=== PATIENT | female | born 1990 | race Caucasian/White ===

== ENCOUNTER → 2020-05-26 12:46 | Outpatient (CLI) | payer SELFPAY ==
[2020-05-27 14:20] LABS: Covid-19 Nasal PCR Sendout Lex Not Detected
== END ==
PROVIDERS: PCP Family Medicine; Referring Provider Family Medicine; Visit Provider Family Medicine
DX: Z03.818 Encounter for observation for suspected exposure to other biological agents ruled out (principal)
CPT/HCPCS: U0004

== ENCOUNTER 2021-02-11 14:42 | Emergency (ER) | payer OTHER, SELFPAY ==
[2021-02-11 14:45] VITALS: BP 155/105; PULSE 76; RESP 20; TEMP 36.9; O2SAT 99; BMI 39.6
--- NOTE | 2021-02-11 15:01 | HMH.EDUTC ---
[facility] [place] Clinical Impression: Otitis media Qualifiers: Otitis media type: suppurative Chronicity: acute Laterality: right Recurrence: non-recurrent Spontaneous tympanic membrane rupture: with spontaneous rupture Qualified Code(s): H66.011 - Acute suppurative otitis media with spontaneous rupture of ear drum, right ear Sinusitis Qualifiers: Sinusitis location: maxillary Chronicity: acute Recurrence: non-recurrent Qualified Code(s): J01.00 - Acute maxillary sinusitis, unspecified Disposition: Home, Self-Care Condition on Discharge: Good Instructions: Sinusitis, DI for Sinusitis, Middle Ear Infection Additional Instructions: Start antibiotic as soon as possible and be sure to take as ordered for full length of time even though he should start feeling better in 24-48 hours. Tylenol or Motrin as needed for pain or fever Encourage fluids, water, Gatorade, Powerade, Pedialyte if /toddler/child Warm compresses often helps when placed over ear Return immediately for new or worsening symptoms no noticeable improvement in 48-72 hours and in 10-14 days to ensure the ears are return to baseline. Start antibiotic patient to take as ordered for a full length of time even if you feel better. Sinus infections do not get better overnight. It may take 2-3 days to notice much improvement so be sure to use conservative measures as discussed for symptoms. Flonase 1 spray each nostril daily to help with nasal congestion, sinus and ear pressure/information Increase fluids Humidifier/vaporizer as needed Tylenol and ibuprofen as needed for fever or pain. If symptoms do not improve or get worse return or be seen in the ER Follow-up with primary care this week Prescriptions: Amoxicillin [Amoxicillin 500mg Tab] 500 mg PO BID 10 Days #20 tab Transmission Status: Pending to [facility] Referrals: Casey Graves MD [Primary Care Provider] - Noe Rizo MD [Staff Physician] - Time of Disposition: 15:06 Medical Decision Making - Tuan Inquiry Pt receiving controlled substance: No [facility] [place] H[place] - General Chief complaint: [facility] Stated complaint: possible Rt ear infection Time Seen by Provider: 02/11/21 15:01 Mode of Arrival: Ambulatory Source of Information: Patient Limitations: No Limitations - History of Present Illness Provider Complaint: 30 yr old female presents for rt ear pain x 3 weeks and now having drainage and pain. also having nasal congestion, sinsus pressure and dark drainage. - Related Data Home Medications Medication Instructions Recorded Confirmed lisinopril 40 mg tablet 40 mg PO DAILY 12/31/18 10/14/19 fexofenadine 180 mg tablet 180 mg PO Q24H 10/14/19 10/14/19 fluticasone propionate 50 2 spray INTRANASAL DAILY 10/14/19 10/14/19 mcg/actuation nasal spray,suspension Previous Rx's Medication Instructions Recorded oseltamivir 75 mg capsule 75 mg PO BID 5 Days #10 cap 10/14/19 Amoxicillin [Amoxicillin 500mg Tab] 500 mg PO BID 10 Days #20 tab 02/11/21 Allergies Allergy/AdvReac Type Severity Reaction Status Date / Time No Known Allergies Allergy Verified 10/14/19 13:57 [facility] History - Hepatitis A Screen Attestation statement:: This patient has been screened for Hepatitis A risk factors. I have reviewed the patient's past medical history: Yes Medical History: Reports:: Hypertension Other Surgeries: Yes: No Previous Surgery - Social History Smoking Status: Never smoker Alcohol Intake: never Occupational Status: employed Housing: house Household Members: family Family Hx:: Hypertension ROS Obtained: Yes Systems reviewed as appropriate & no additional complaints - Constitutional Constitutional: Reports system reviewed and no additional complaints, except as docu, Denies fever(s) - Eyes Eyes: Reports system reviewed and no additional complaints, except as docu, Denies blurry vision - ENT Ears, Nose, Mouth, and Throat: Reports system reviewed and no
[2021-02-11 15:13] VITALS: BP 155/105; PULSE 76; RESP 20; TEMP 36.9; O2SAT 99
== END 2021-02-11 15:26 | disposition home or self-care (01) ==
PROVIDERS: Emergency Provider Nurse Practitioner Family; PCP Family Medicine
DX: H66.011 Acute suppurative otitis media with spontaneous rupture of ear drum, right ear (principal); J01.00 Acute maxillary sinusitis, unspecified; I10 Essential (primary) hypertension; Z79.899 Other long term (current) drug therapy
CPT/HCPCS: 99202; G0463

== ENCOUNTER → 2021-03-14 08:39 | Outpatient (POV) | payer OTHER, SELFPAY | PROVIDERS: Visit Provider Otolaryngology | DX: Z00.00 Encounter for general adult medical examination without abnormal findings (principal) ==

== ENCOUNTER → 2021-11-15 10:51 | Outpatient (CLI) | payer OTHER, SELFPAY ==
[2021-11-15 12:26] LABS: Chloride 102 mmol/L (98-107); Sodium 135 mmol/L (136-145)
[2021-11-15 12:27] LABS: Potassium 4.5 mmoL/L (3.5-5.1)
[2021-11-15 12:29] LABS: Alanine Aminotransferase 83 U/L (12-78); Albumin Level 4.9 g/dl (3.5-5.0); Albumin/Globulin Ratio 1.4 (1.1-1.8); Alkaline Phosphatase 88 U/L (38-126); Anion Gap 9.5 mEq/L (5-15); Aspartate Amino Transferase 75 U/L (14-36); Bilirubin,Total 0.4 mg/dl (0.2-1.3); Blood Urea Nitrogen 12 mg/dl (7-17); Carbon Dioxide 28 mmol/L (22.0-30.0); Cholesterol 218 mg/dl (140-200); Estimated Glomerular Filt Rate 117 ml/min (>60); GFR (African American) 141 ML/MIN (>60); Globulin 3.6 g/dL (1.3-3.2); Total Protein,Serum 8.5 g/dl (6.3-8.2); Triglycerides 186 mg/dl (30-150); VLDL Cholesterol 37 mg/dL (0-40)
[2021-11-15 12:30] LABS: Calcium 9.7 mg/dl (8.4-10.2); Chol/HDL Ratio 4.3 (1-3.5); Glucose 86 mg/dl (74-100); HDL Cholesterol 51 mg/dl (40-60)
[2021-11-15 12:41] LABS: Direct LDL Cholesterol 138.11 mg/dL (100-129)
[2021-11-15 12:51] LABS: 25-OH Vitamin D, Total 23.7 ng/mL (30-100)
[2021-11-15 13:01] LABS: Thyroid Stimulating Hormone 1.42 uIU/mL (0.465-4.68)
== END ==
LOC: LAB 10:52
PROVIDERS: PCP Physician Assistant; Visit Provider Physician Assistant
DX: I10 Essential (primary) hypertension (principal); E55.9 Vitamin D deficiency, unspecified; Z13.220 Encounter for screening for lipoid disorders; Z13.29 Encounter for screening for other suspected endocrine disorder; Z79.899 Other long term (current) drug therapy
CPT/HCPCS: 36415; 80053; 80061; 82306; 84443

== ENCOUNTER → 2021-12-05 07:55 | Outpatient (CLI) | payer OTHER, SELFPAY ==
--- NOTE | 2021-12-05 08:00 | US_ITS ---
FINAL REPORT CLINICAL HISTORY: ELEVATED LFT FINDINGS: Sonographic images of the right upper quadrant were obtained. The pancreas is partially obscured. The liver has increased echogenicity consistent with fatty infiltration. There is a trace amount of sludge in the gallbladder without evidence of gallstones.There is no evidence of biliary ductal dilatation.The common duct measures 3 mm. Limited images of the right kidney are unremarkable. IMPRESSION: Fatty infiltrated liver. Trace amount of sludge in the gallbladder without evidence of gallstones. Reviewed, Interpreted and Dictated by Julio Sibley III, MD Transcribed by Rebeca Pierce Authenticated by Julio Sibley III, MD on 12/05/2021 11:32:35 AM [facility]
== END ==
PROVIDERS: PCP Physician Assistant; Visit Provider Physician Assistant
DX: R94.5 Abnormal results of liver function studies (principal)
CPT/HCPCS: 76705

== ENCOUNTER 2022-01-15 19:36 | Emergency (ER) | payer OTHER, SELFPAY ==
[2022-01-15 20:49] VITALS: BP 143/77; PULSE 102; RESP 17; TEMP 38.2; O2SAT 98; BMI 38.7
--- NOTE | 2022-01-15 20:58 | HMH.EDUTC ---
[place] Disposition Clinical Impression: Strep throat Otitis media Qualifiers: Otitis media type: suppurative Chronicity: acute Laterality: bilateral Recurrence: non-recurrent Spontaneous tympanic membrane rupture: without spontaneous rupture Qualified Code(s): H66.003 - Acute suppurative otitis media without spontaneous rupture of ear drum, bilateral Disposition: Home, Self-Care Condition on Discharge: Good Instructions: Strep Throat, DI for Strep Throat Additional Instructions: Drink plenty of fluids. Take tylenol or ibuprofen for pain or fever. Take the medications as directed. Follow up with your regular doctor. GO TO THE ER FOR ANY WORSENING SYMPTOMS Throw your tooth brush away and get a new one. Don't start the oral steroids until tomorrow, since you had the shot here today. The cough medication (promethazine dm) will make you drowsy, so don't drive or operate heavy machinery after taking it. Prescriptions: Promethazine/Dextromethorphan [Promethazine-Dm Syrup] 5 ml PO Q6HP PRN #240 ml PRN Reason: Cough Transmission Status: Pending to [facility] Ondansetron [Zofran 4mg ODT] 4 mg PO Q8HP PRN #20 tab PRN Reason: Nausea Transmission Status: Pending to [facility] Amoxicillin/Potassium Clav [Amox-Clav 875-125 mg Tablet] 1 tab PO BID #20 tab Transmission Status: Pending to [facility] methylPREDNISolone [Medrol] 4 mg PO DIRECTED 6 Days #21 packet Transmission Status: Pending to [facility] Referrals: Jane Kendall PA [Primary Care Provider] - Forms: Work/School Release Time of Disposition: 21:20 Medical Decision Making - Medical Records Medical records reviewed: No: I reviewed the patient's medical records. - Tuan Inquiry Pt receiving controlled substance: No Vital Signs: 01/15/22 20:49 01/15/22 21:12 Temperature 100.8 F H 100.8 F H Temperature Source Oral Oral Pulse Rate 89 Pulse Rate [Left Radial] 102 H Respiratory Rate 17 17 Blood Pressure 140/70 Blood Pressure [Right Arm] 143/77 H Blood Pressure Mean [Right Arm] 99 02 Sat by Pulse Oximetry 98 Oxygen Delivery Method Room Air Room Air - Lab Data Lab results reviewed: Yes: I reviewed the patient's lab results. Orders (Tests/Meds): ED MEDICATIONS Discontinued Medications Generic Name Dose Route Start Last Admin Trade Name Sathya PRTenzin Reason Stop Dose Admin Ceftriaxone Sodium 1 gm 01/15/22 20:56 01/15/22 21:03 Ceftriaxone 1gm Vial IM 01/15/22 20:57 1 gm ONCE ONE Administration Lidocaine HCl 0 ml 01/15/22 20:56 01/15/22 21:03 Lidocaine 1% 5ml Pf Vial IM 01/15/22 20:57 1 ml ONCE ONE Administration Methylprednisolone Sodium Succinate 125 mg 01/15/22 20:56 01/15/22 21:02 Methylprednisolone Sod Succ 125mg Vial IM 01/15/22 20:57 125 mg ONCE ONE Administration [place] HPI - General Stated complaint: sore throat,GRIFFITHS diarrhes,runny nose Time Seen by Provider: 01/15/22 20:59 Mode of Arrival: Ambulatory Source of Information: Patient Limitations: No Limitations Description of Symptoms (Recalled from Triage Doc. by RN): [facility]/o sore throat, congestion and chills that started today HEENT Symptoms (Recalled from RN notes): Yes Resp Symptoms (Recalled from RN notes): No Skin Symptoms (Recalled from RN notes): No MS Symptoms (Recalled from RN notes): No Functional Status (Recalled from RN notes): na - History of Present Illness Provider Complaint: She states that she has had a sore throat and right ear pain since earlier today. Her symptoms came on kind of abruptly. She has had chilling and low grade fever also. - Related Data Home Medications Medication Instructions Recorded Confirmed lisinopril 40 mg tablet 40 mg PO DAILY 12/31/18 02/11/21 fluticasone propionate 50 2 spray INTRANASAL DAILY 10/14/19 02/11/21 mcg/actuation nasal spray,suspension Previous Rx's Medication Instructions Recorded Brett
[2022-01-15 21:12] VITALS: BP 140/70; PULSE 89; RESP 17; TEMP 38.2; O2SAT 98
== END 2022-01-15 21:21 | disposition home or self-care (01) ==
PROVIDERS: Emergency Provider Nurse Practitioner Family; PCP Physician Assistant
DX: J02.0 Streptococcal pharyngitis (principal); H66.003 Acute suppurative otitis media without spontaneous rupture of ear drum, bilateral; I10 Essential (primary) hypertension
CPT/HCPCS: 96372; 99213; G0463; J0696

== ENCOUNTER 2022-05-24 13:08 | Emergency (ER) | payer OTHER, SELFPAY ==
[2022-05-24 14:32] VITALS: BP 153/92; PULSE 89; RESP 18; TEMP 36.8; O2SAT 100; BMI 38.2
--- NOTE | 2022-05-24 14:42 | HMH.EDUTC ---
[facility] [place] Disposition Clinical Impression: Viral syndrome Disposition: Home, Self-Care Condition on Discharge: Good Instructions: DI for Viral Syndrome, DI for COVID-19 (Suspected or Confirmed ), Preventing the Spread of Coronavirus Discharge Instructions Additional Instructions: *Monitor Temp, Over the counter Motrin or Tylenol as directed/as needed Tylenol every 4 hours and Motrin every 6 hours (as long as your family doctor has told you that you can take it) for fever or pain. and straight to ER if unable to lower temp less than 101.0 after medication given *Warm salt water gargles may help to soothe the throat *Throat Lozenges *Warm fluids like tea with honey may help to soothe the throat *Sleep elevated *Humidifier/Vaporizer Follow up IMMEDIATELY for new or worsening symptoms or no Noticeable improvement over the next 48-72 hours. 911 for difficulty breathing or swallowing You were tested for today for COVID19 your test result should be back in the next 24-48 hours, you may check your results on the [facility] My Health portal Make sure to take your Vitamins Vit. C Vit D and Zinc if you can take them Referrals: Jane Kendall PA [Primary Care Provider] - As needed Forms: Work/School Release Time of Disposition: 14:46 Medical Decision Making - Tuan Inquiry Pt receiving controlled substance: No Tuan was queried for this patient: No Vital Signs: 05/24/22 14:32 Temperature 98.2 F Temperature Source Oral Pulse Rate [Radial] 89 Respiratory Rate 18 Blood Pressure [Right Arm] 153/92 H Blood Pressure Mean [Right Arm] 112 Blood Pressure Source [Right Arm] Automatic Cuff Blood Pressure Position [Right Arm] Sitting 02 Sat by Pulse Oximetry 100 Oxygen Delivery Method Room Air Orders (Tests/Meds): ORDERS Category Date Time Status Covid-19 Nasal PCR ([facility]) Routine Lab 05/24/22 14:[address] [facility] [place] HPI - General Stated complaint: covid test Time Seen by Provider: 05/24/22 14:42 Mode of Arrival: Ambulatory Source of Information: Patient Limitations: No Limitations Description of Symptoms (Recalled from Triage Doc. by RN): BODY ACHES, CHILLS, COUGH HEENT Symptoms (Recalled from RN notes): Yes Resp Symptoms (Recalled from RN notes): Yes Skin Symptoms (Recalled from RN notes): No MS Symptoms (Recalled from RN notes): No Functional Status (Recalled from RN notes): N/A - History of Present Illness Provider Complaint: Patient states that she was around several people at work that has since tested positive for COVID States that she has now started not feeling well with body aches, cough, chills and nasal congestion so she waned to get tested for COVID - Related Data Home Medications Medication Instructions Recorded Confirmed lisinopril 40 mg tablet 40 mg PO DAILY 12/31/18 02/11/21 fluticasone propionate 50 2 spray INTRANASAL DAILY 10/14/19 02/11/21 mcg/actuation nasal spray,suspension Previous Rx's Medication Instructions Recorded Amoxicillin [Amoxicillin 500mg Tab] 500 mg PO BID 10 Days #20 tab 02/11/21 Amoxicillin/Potassium Clav 1 tab PO BID #20 tab 01/15/22 [Amox-Clav 875-125 mg Tablet] Ondansetron [Zofran 4mg ODT] 4 mg PO Q8HP PRN #20 tab 01/15/22 Promethazine/Dextromethorphan 5 ml PO Q6HP PRN #240 ml 01/15/22 [Promethazine-Dm Syrup] methylPREDNISolone [Medrol] 4 mg PO DIRECTED 6 Days #21 01/15/22 packet Allergies Allergy/AdvReac Type Severity Reaction Status Date / Time No Known Allergies Allergy Verified 10/14/19 13:57 - Worker's Comp Is this a Worker's Comp case?: No [facility] History - Hepatitis A Screen Attestation statement:: This patient has been screened for Hepatitis A risk factors. I have reviewed the patient's past medical history: Yes Medical History: Reports:: Hypertension Laterality Cases: Bilateral: Myringotomy (Ear Tubes) Other Surgeries: Yes: No Previous Surgery - Social History Smoking Status: Never smoker Alcohol Intake: never Occ
[2022-05-24 14:50] VITALS: BP 153/92; PULSE 88; RESP 18; TEMP 36.8; O2SAT 100
== END 2022-05-24 14:50 | disposition home or self-care (01) ==
PROVIDERS: Emergency Provider Nurse Practitioner; PCP Physician Assistant
DX: U07.1 COVID-19 (principal)
CPT/HCPCS: 99212; C9803; G0463; U0003; U0005

== ENCOUNTER 2022-08-16 18:06 | Emergency (ER) | payer OTHER, SELFPAY ==
[2022-08-16 18:59] VITALS: BP 140/93; PULSE 78; RESP 19; TEMP 37.1; O2SAT 98; BMI 38.7
[2022-08-16 19:12] LABS: UTC Strep Screen (Rapid) Negative (Negative)
--- NOTE | 2022-08-16 19:17 | EXP.UTC ---
Discharge Plan Disposition Patient Disposition: Home, Self-Care Condition: Good Prescriptions Prescriptions: New benzonatate 100 mg capsule 100 mg PO TID PRN (Reason: cough) Qty: 30 0RF methylprednisolone [Medrol (Michael)] 4 mg tablets,dose pack See Rx Instructions .Route .COMPLEX 6 Days Qty: 21 0RF Rx Instructions: taper pack; amoxicillin-pot clavulanate 875-125 mg Tablet 1 tab PO Q12H Qty: 20 0RF No Action lisinopril 40 mg tablet 40 mg PO DAILY fluticasone propionate [Flonase Allergy Relief] 50 mcg/actuation spray,suspension 2 spray INTRANASAL DAILY Rx Instructions: administer into each nostril amoxicillin 500 MG tablet 500 mg PO BID 10 Days Qty: 20 0RF promethazine-DM 120 ML syrup 5 ml PO Q6HP PRN (Reason: Cough) Qty: 240 0RF methylprednisolone 4 MG tablets,dose pack 4 mg PO DIRECTED 6 Days Qty: 21 0RF ondansetron 4 MG tablet,disintegrating 4 mg PO Q8HP PRN (Reason: Nausea) Qty: 20 0RF amoxicillin-pot clavulanate 1 EACH tablet 1 tab PO BID Qty: 20 0RF loratadine [Claritin] 10 mg Tablet 10 mg PO DAILY Referrals Follow up/Referrals: Jane Kendall PA [Primary Care Provider] - See instructions Activity Restrictions/Add. Instructions Additional Instructions/Restrictions: *Monitor Temp, Over the counter Motrin or Tylenol as directed/as needed Tylenol every 4 hours and Motrin every 6 hours (as long as your family doctor has told you that you can take it) for fever or pain. and straight to ER if unable to lower temp less than 101.0 after medication given *Warm salt water gargles may help to soothe the throat *Throat Lozenges? *Warm fluids like tea with honey may help to soothe the throat? *Sleep elevated *Humidifier/Vaporizer Your throat swab was sent for culture. Those results are typically sent to your primary care. Be sure to follow up in 2-3 days with your family doctor/primary care physician if no improvement so they can review those result and treat if necessary. If you don?t have a primary care doctor, I recommend you get one but in the mean time, you will have to return to a walk in clinic Follow up IMMEDIATELY for new or worsening symptoms or no Noticeable improvement over the next 48-72 hours. 911 for difficulty breathing or swallowing You were tested for today for COVID19 your test result should be back in the next 24-48 hours, you may check your results on the [facility] My Health Portal Clinical Impressions Clinical Impression: Otitis media Stand Alone Forms Stand Alone Forms: Work/School Release Instructions Patient Instructions: Middle Ear Infection, Sore Throat Discharge ED Provider: Rima Grover [facility] [place] HPI General Stated complaint: sore thru,L ear drainage Mode of Arrival: Ambulatory Source of Information: Patient Limitations: No Limitations Time Seen by Provider: 08/16/22 19:17 Description of Symptoms (Recalled from Triage Doc. by RN): pt comes in with c/o cough, congestion, left ear pain, drainage, ongoing for 1 week HEENT Symptoms (Recalled from RN notes): Yes Resp Symptoms (Recalled from RN notes): Yes Skin Symptoms (Recalled from RN notes): No MS Symptoms (Recalled from RN notes): No Functional Status (Recalled from RN notes): n/a History of Present Illness Provider Complaint: Patient states that she has been having cough, bilateral ear pain worse in left, sinus congestion and drainage for the last week States that today her ears was hurting worse and she felt like it was trying to move into her chest area Related Data Home Medications Medication Instructions Recorded Confirmed lisinopril 40 mg tablet 40 mg PO DAILY Hypertension 12/31/18 08/16/22 fluticasone propionate 50 2 spray intranasal DAILY Allergy 10/14/19 08/16/22 mcg/actuation nasal symptoms spray,suspension (Flonase Allergy Relief) loratadine 10 mg tablet (Claritin) 10 mg PO DAILY Allergy symptoms 08/16/22
[2022-08-16 19:23] LABS: Adenovirus,PCR Not Detected (NotDetected); Bordetella Pertussis Not Detected (NotDetected); Chlamydophila Pneumoniae, PCR Not Detected (NotDetected); Coronavirus 19, PCR Not Detected (NotDetected); Coronavirus 229E Not Detected (NotDetected); Coronavirus NL63 Not Detected (NotDetected); Coronavirus OC43 Not Detected (NotDetected); Coronovirus HKU1,PCR Not Detected (NotDetected); Human Metapneumovirus Not Detected (NotDetected); Influenza A, PCR Not Detected (NotDetected); Influenza AH1, 2009 Not Detected (NotDetected); Influenza AH1, PCR Not Detected (NotDetected); Influenza AH3,PCR Not Detected (NotDetected); Influenza B, PCR Not Detected (NotDetected); Mycoplasma Pneumoniae, PCR Not Detected (NotDetected); Parainfluenza 1, PCR Not Detected (NotDetected); Parainfluenza 2, PCR Not Detected (NotDetected); Parainfluenza 3, PCR Not Detected (NotDetected); Parainfluenza 4, PCR Not Detected (NotDetected); Respiratory Syncytial Virus Not Detected (NotDetected)
[2022-08-16 19:31] VITALS: BP 140/93; PULSE 78; RESP 19; TEMP 37.1
[2022-08-16 23:36] LABS: Rhinovirus/Enterovirus Detected (NotDetected)
== END 2022-08-16 19:55 | disposition home or self-care (01) ==
PROVIDERS: Emergency Provider Nurse Practitioner; PCP Physician Assistant
DX: H66.90 Otitis media, unspecified, unspecified ear (principal)
CPT/HCPCS: 87581; 87632; 87798; 87880; 99212; C9803; G0463; U0003; U0005

== ENCOUNTER → 2022-10-23 09:01 | Outpatient (CLI) | payer OTHER, SELFPAY ==
--- NOTE | 2022-10-23 09:07 | US_ITS ---
FINAL REPORT CLINICAL HISTORY: ELEVATED LFT FINDINGS: Sonographic images of the right upper quadrant were obtained. The pancreas is partially obscured. The liver has increased echogenicity consistent with fatty infiltration. The gallbladder appears normal without evidence of gallstones.There is no evidence of biliary ductal dilatation.The common duct measures 2 mm. Limited images of the right kidney are unremarkable. IMPRESSION: Fatty liver. Reviewed, Interpreted and Dictated by Julio Sibley III, MD Transcribed by Rebeca Pierce Authenticated and . [facility]
== END ==
LOC: RAD 09:01
PROVIDERS: PCP Physician Assistant; Visit Provider Physician Assistant
DX: R94.5 Abnormal results of liver function studies (principal)
CPT/HCPCS: 76705

== ENCOUNTER 2023-04-14 09:59 | Emergency (ER) | payer OTHER, SELFPAY ==
[2023-04-14 10:00] VITALS: BP 143/89; PULSE 104; RESP 18; TEMP 37.3; O2SAT 97; BMI 40.3
[2023-04-14 10:18] LABS: UTC Strep Screen (Rapid) Positive (Negative)
--- NOTE | 2023-04-14 10:30 | EXP.UTC ---
Discharge Plan Disposition Patient Disposition: Home, Self-Care Condition: Good Prescriptions Prescriptions: New amoxicillin [amoxicillin] 875 mg tablet 875 mg PO Q12H Qty: 20 0RF yzwfdwidxzyyvjx-zakenepce-UJ [Bromfed DM] 2-30-10 mg/5 mL Syrup 5 ml PO Q6H PRN (Reason: Cough) Qty: 240 0RF methylprednisolone 4 mg Tablets,Dose Pack 4 mg PO DIRECTED Qty: 21 0RF No Action lisinopril 40 mg tablet 40 mg PO DAILY fluticasone propionate [Flonase Allergy Relief] 50 mcg/actuation spray,suspension 2 spray INTRANASAL DAILY Rx Instructions: administer into each nostril amoxicillin 500 MG tablet 500 mg PO BID 10 Days Qty: 20 0RF promethazine-DM 120 ML syrup 5 ml PO Q6HP PRN (Reason: Cough) Qty: 240 0RF methylprednisolone 4 MG tablets,dose pack 4 mg PO DIRECTED 6 Days Qty: 21 0RF ondansetron 4 MG tablet,disintegrating 4 mg PO Q8HP PRN (Reason: Nausea) Qty: 20 0RF amoxicillin-pot clavulanate 1 EACH tablet 1 tab PO BID Qty: 20 0RF loratadine [Claritin] 10 mg Tablet 10 mg PO DAILY benzonatate 100 mg capsule 100 mg PO TID PRN (Reason: cough) Qty: 30 0RF methylprednisolone [Medrol (Michael)] 4 mg tablets,dose pack See Rx Instructions .Route .COMPLEX 6 Days Qty: 21 0RF Rx Instructions: taper pack; amoxicillin-pot clavulanate 875-125 mg Tablet 1 tab PO Q12H Qty: 20 0RF Referrals Follow up/Referrals: Jane Kendall PA [Primary Care Provider] - See instructions Activity Restrictions/Add. Instructions Additional Instructions/Restrictions: Drink plenty of fluids. Take tylenol or ibuprofen for pain or fever. Take the medications as directed. Follow up with your regular doctor. GO TO THE ER FOR ANY WORSENING SYMPTOMS Throw your tooth brush away and get a new one. Clinical Impressions Clinical Impression: Otitis media, Strep throat Stand Alone Forms Stand Alone Forms: Work/School Release Instructions Patient Instructions: DI for Strep Throat Discharge ED Provider: Dony Osei [facility] General Stated complaint: sore throat,drainage Mode of Arrival: Ambulatory Source of Information: Patient Limitations: No Limitations Time Seen by Provider: 04/14/23 10:30 Description of Symptoms (Recalled from Triage Doc. by RN): Patient complaint of sore throat, headache and drainage since yesterday. HEENT Symptoms (Recalled from RN notes): Yes Resp Symptoms (Recalled from RN notes): No Skin Symptoms (Recalled from RN notes): No MS Symptoms (Recalled from RN notes): No Functional Status (Recalled from RN notes): wnl History of Present Illness Provider Complaint: She c/o right ear and sore throat for the past 3 days. Related Data Home Medications Medication Instructions Recorded Confirmed lisinopril 40 mg tablet 40 mg PO DAILY Hypertension 12/31/18 08/16/22 fluticasone propionate 50 2 spray intranasal DAILY Allergy 10/14/19 08/16/22 mcg/actuation nasal symptoms spray,suspension (Flonase Allergy Relief) loratadine 10 mg tablet (Claritin) 10 mg PO DAILY Allergy symptoms 08/16/22 08/16/22 Previous Rx's Medication Instructions Recorded amoxicillin 500 mg tablet 500 mg PO BID 10 days #20 tabs 02/11/21 amoxicillin 875 mg-potassium 1 tab PO BID #20 tabs 01/15/22 clavulanate 125 mg tablet methylprednisolone 4 mg tablets in 4 mg PO DIRECTED 6 days #21 01/15/22 a dose pack packets ondansetron 4 mg disintegrating 4 mg PO Q8HP PRN Nausea #20 tabs 01/15/22 tablet promethazine-DM 6.25 mg-15 mg/5 mL 5 ml PO Q6HP PRN Cough #240 mL 01/15/22 oral syrup amoxicillin 875 mg-potassium 1 tab PO Q12H #20 tabs 08/16/22 clavulanate 125 mg tablet benzonatate 100 mg capsule 100 mg PO TID PRN cough #30 caps 08/16/22 methylprednisolone 4 mg tablets in See Rx Instructions .Route 08/16/22 a dose pack (Medrol (Michael)) .COMPLEX 6 days #21 tabs amoxicillin 875 mg tablet 875 mg PO Q12H #20 tabs 04/14/23 brompheniramine-pseudoephed
[2023-04-14 10:57] VITALS: BP 143/89; PULSE 104; RESP 18; TEMP 37.3; O2SAT 97
== END 2023-04-14 10:58 | disposition home or self-care (01) ==
PROVIDERS: Emergency Provider Nurse Practitioner Family; PCP Physician Assistant
DX: J02.0 Streptococcal pharyngitis (principal); H66.93 Otitis media, unspecified, bilateral
CPT/HCPCS: 87880

== ENCOUNTER 2023-12-16 10:00 | Emergency (ER) | payer BC, SELFPAY ==
[2023-12-16 10:15] VITALS: BP 131/91; PULSE 91; RESP 19; TEMP 36.9; O2SAT 98; BMI 40.2
--- NOTE | 2023-12-16 10:24 | ED_ITS ---
Discharge Plan Disposition Patient Disposition: Home, Self-Care Condition: Good Prescriptions Prescriptions: New prednisone 10 mg tablet 10 mg PO BID 3 Days Qty: 6 0RF amoxicillin [amoxicillin] 875 mg tablet 875 mg PO Q12H Qty: 20 0RF [id number] [Bromfed DM] 2-30-10 mg/5 mL Syrup 5 ml PO Q6H PRN (Reason: Cough) Qty: 240 0RF No Action lisinopril 40 mg tablet 40 mg PO DAILY fluticasone propionate [Flonase Allergy Relief] 50 mcg/actuation spray,suspension 2 spray INTRANASAL DAILY Rx Instructions: administer into each nostril loratadine [Claritin] 10 mg Tablet 10 mg PO DAILY montelukast [Singulair] 10 mg Tablet 10 mg PO DAILY Referrals Follow up/Referrals: Jane Kendall PA [Primary Care Provider] - See instructions Activity Restrictions/Add. Instructions Additional Instructions/Restrictions: Drink plenty of fluids. Take tylenol or ibuprofen for pain or fever. Follow up with your regular doctor. GO TO THE ER FOR ANY WORSENING SYMPTOMS Clinical Impressions Clinical Impression: Strep throat Stand Alone Forms Stand Alone Forms: Work/School Release Instructions Patient Instructions: Strep Throat, DI for Strep Throat Discharge ED Provider: Dony Osei [facility] General Stated complaint: fever, GRIFFITHS, ear pain Time Seen by Provider: 12/16/23 10:24 History of Present Illness Provider Complaint: She states that for the past 2 days she has had sore throat, chills, and malaise. Related Data Home Medications Medication Instructions Recorded Confirmed lisinopril 40 mg tablet 40 mg PO DAILY Hypertension 12/31/18 12/16/23 fluticasone propionate 50 2 spray intranasal DAILY Allergy 10/14/19 12/16/23 mcg/actuation nasal symptoms spray,suspension (Flonase Allergy Relief) loratadine 10 mg tablet (Claritin) 10 mg PO DAILY Allergy symptoms 08/16/22 12/16/23 montelukast 10 mg tablet 10 mg PO DAILY 12/16/23 12/16/23 (Singulair) Previous Rx's Medication Instructions Recorded amoxicillin 875 mg tablet 875 mg PO Q12H #20 tabs 12/16/23 [id number]-TD 5 ml PO Q6H PRN Cough #240 mL 12/16/23 2 mg-30 mg-10 mg/5 mL oral syrup (Bromfed DM) prednisone 10 mg tablet 10 mg PO BID 3 days #6 tabs 12/16/23 Allergies Allergy/AdvReac Type Severity Reaction Status Date / Time No Known Allergies Allergy Verified 11/04/23 15:53 [facility] Disclaimer: The information contained in this section may have been updated after the patient was seen, as this information can be updated by other users. Medical History (Updated 12/16/23 @ 10:45 by Dony Osei APRN) Acute right otitis media Chronic otitis media of right ear Recurrent acute otitis media of both ears Retraction pocket of tympanic membrane Social History Smoking Status: Never smoker alcohol intake: never current occupational status: other Travel in the last 8 weeks: None household members: family housing: house ROS Obtained: Yes All systems reviewed & no additional complaints except as documented Constitutional Constitutional: Reports chills and Reports fever(s) Eyes Eyes: Denies eye discharge ENT Ears, Nose, Mouth, and Throat: Reports as per HPI Cardiovascular Cardiovascular: Denies chest pain Respiratory Respiratory: Denies chest congestion and Reports cough Gastrointestinal Gastrointestingal: Reports nausea; Denies abdominal pain, constipation, cramping, diarrhea or vomiting Musculoskeletal Musculoskeletal: Denies arthralgias Integumentary/Breasts Skin/Breast: Denies rash Neurologic Neurologic: Denies paresthesias Physical Exam General General appearance: alert and in no apparent distress Head Head exam: atraumatic, normocephalic and normal inspection Eye Eye exam: Present normal appearance, PERRL and EOMI ENT ENT exam: Present mucous membranes moist and normal external ear exam Expanded ENT Exam TM/Canal exam: Bilateral TM: erythema and bulging Nose exam: Absent sinus tenderness Mouth exam: Present normal external inspection; Absent drooling Teeth exam: Present normal inspection Throat exam: Present tonsillar erythema, tonsillomegaly and tonsillar exudate Neck Neck exam: Present normal inspection, full ROM and trachea midline; Absent tenderness, meningismus or lymphadenopathy Chest Chest inspection: Present normal inspection and symmetric chest wall rise; Absent tenderness Respiratory Respiratory exam: Present normal lung sounds bilaterally; Absent respiratory distress, wheezes, stridor or accessory muscle use Cardiovascular Cardiovascular exam: Present regular rate and normal rhythm; Absent systolic murmur or diastolic murmur Abdominal Exam Abdominal exam: Present soft and normal bowel sounds; Absent distention, tenderness, guarding, rebound or rigidity Extremities Exam Extremities exam: Present normal inspection and normal capillary refill; Absent calf tenderness Back Exam Back exam: Present normal inspection and full ROM; Absent tenderness, CVA tenderness (R) or CVA tenderness (L) Neurological Exam Neurological exam: Present alert, oriented X3 and CN II-XII intact Psychiatric Psychiatric exam: Present normal affect and normal mood Skin Skin exam: Present warm, dry, intact and normal color Medical Decision Making Medical Records Medical records reviewed: No I reviewed the patient's medical records. Tuan Inquiry Pt receiving controlled substance: No Lab Data Lab results reviewed: Yes I reviewed the patient's lab results.
[2023-12-16 10:38] VITALS: BP 131/91; PULSE 91; RESP 19; TEMP 36.9; O2SAT 98
[2023-12-16 10:41] LABS: UTC Strep Screen (Rapid) Positive (Negative)
[2023-12-16 10:42] LABS: UTC Influenza A Antigen Negative (Negative); UTC Influenza B Antigen Negative (Negative)
== END 2023-12-16 10:53 | disposition home or self-care (01) ==
PROVIDERS: Emergency Provider Nurse Practitioner Family; PCP Physician Assistant
DX: J02.0 Streptococcal pharyngitis (principal); R07.0 Pain in throat; R50.9 Fever, unspecified; R05.9 Cough, unspecified; R11.0 Nausea
CPT/HCPCS: 87804; 87880; 99212; 99214; G0463

== ENCOUNTER 2024-01-13 15:33 | Outpatient (POV) | payer BC, SELFPAY | END 2024-01-13 23:59 | disposition home or self-care (01) | LOC: SC 15:33 | PROVIDERS: Visit Provider Specialist/Technologist | DX: Z00.00 Encounter for general adult medical examination without abnormal findings (principal) ==

== ENCOUNTER 2024-02-07 13:29 | Outpatient (CLI) | payer BC, SELFPAY ==
--- NOTE | 2024-02-07 13:53 | MR_ITS ---
FINAL REPORT CLINICAL HISTORY: HEARING LOSS IN RIGHT EAR COMPARISON: None FINDINGS: Multiplanar MR imaging of the brain was performed without and with contrast, with attention to the posterior fossa, cerebellopontine angles and internal auditory canals. There is no evidence of intracranial hemorrhage or mass. The ventricular size is within normal limits. There is no evidence of shift of the midline structures. No area of abnormal restricted diffusion is identified. Normal major vessel vascular flow voids are seen. No abnormal contrast enhancement is identified within the brain. No mass or abnormal contrast enhancement is seen within the cerebellopontine angles or internal auditory canals. There is opacification of the right mastoid air cells, the mastoid antrum, and the middle ear cavity on the right side. There is opacification of several left mastoid air cells as well, and the ethmoid air cells. IMPRESSION: No acute intracranial abnormality identified. Opacification of the right mastoid air cells, the mastoid antrum, and middle ear cavity all on the right side, that may represent an otitis media or other etiology of the right sided hearing loss. There is also opacification of several left mastoid air cells as well as multiple ethmoid air cells. Reviewed, Interpreted and Dictated by Julio Sibley III, MD Transcribed by Ema Lin Authenticated and [facility]
[2024-02-07 14:28] LABS: Blood Urea Nitrogen 9 mg/dl (7-17); Estimated Glomerular Filt Rate 115 ml/min (>60); GFR (African American) 139 ML/MIN (>60)
[2024-02-07] MEDS: SODIUM CHLORIDE 0.9% 10ML SYR (RAD ONLY) 10 ML IV (15:14)
[2024-02-07] MEDS: GADOTERIDOL INJ 17ML SYRINGE 22 ML IV (15:14)
== END 2024-02-07 23:59 | disposition home or self-care (01) ==
PROVIDERS: PCP Physician Assistant; Visit Provider Nurse Practitioner
DX: H93.11 Tinnitus, right ear (principal); H90.11 Conductive hearing loss, unilateral, right ear, with unrestricted hearing on the contralateral side
CPT/HCPCS: 36415; 70553; 82565; 84520; A9576

== ENCOUNTER 2024-03-09 08:32 | Day surgery (SDC) | payer BC, SELFPAY ==
[2024-03-05 10:27] VITALS: BMI 40.3
[2024-03-09] VITALS (8 sets, daily range): BP systolic 126–150; BP diastolic 73–97; PULSE 85–112; RESP 12–18; TEMP 36.3–36.6; O2SAT 91–97
[2024-03-09 09:18] LABS: Urine Pregnancy, HCG Qual. Negative (Negative)
[2024-03-09] MEDS: LACTATED RINGERS 1000ML 1,000 ML 25 ML IV (09:28)
--- NOTE | 2024-03-09 09:32 | P.PNANES_ITS ---
[facility] Disclaimer: The information contained in this section may have been updated after the patient was seen, as this information can be updated by other users. Medical History Hypertension Chronic serous otitis media Tinnitus Hearing loss Retraction pocket of tympanic membrane Chronic otitis media of right ear Acute right otitis media Recurrent acute otitis media of both ears Family History Other Family history of myocardial infarction Social History (Updated 03/09/24 @ 09:10 by Loli Paris RN) Smoking Status: Never smoker alcohol intake: never substance use type: denies use current occupational status: employed Travel in the last 8 weeks: None household members: family housing: house [facility] Anesthesia Checklist Patient Identification Patient Identification: Arm Band Structural Data Admitted From: Home Planned Operative Procedure/s: Right Myringotomy Tube Placement Consent for Planned Operative Procedure(s) Verified: Yes Verified Documents: Surgical Consent and History and Physical NPO Status Verified Time NPO: 00:00 Additional verifications Anesthesia Reactions: No Hx Blood Transfusions: No Blood Transfusion Reaction: No Airway Assessment Mallampati Score:: Class II C-Spine Mobility Assessed: Yes TMJ Mobility Assessed: Yes Dentition: Good Dentition Neurological Assessment Level of Consciousness: Awake and Alert Anesthesia Plan Anesthesia Risk discussed: Yes Anesthesia Plan: Verified ASA Class: III Anesthesia Type: General
--- NOTE | 2024-03-09 10:57 | EXP.OP.NOTE ---
Date of procedure: 03/09/24 Pre-op Diagnosis:: Chronic serous otitis media?right Post-op Diagnosis:: Same Procedure performed:: Right myringotomy with tube placement?small T-tube Surgeon:: Augustus Shah III, MD Engineering And Scientific Programmer(s):: None PACKAGER:: Aydee Benito Anesthesia: GETKath Estimated blood loss (mL): 0 Operative findings:: Retracted right tympanic membrane with evidence of granulation tissue posteriorly with early retraction pocket. Operative note:: Patient was brought to the operating room placed under general endotracheal anesthesia. Left external auditory canal and tympanic membrane were inspected under microscopic guidance. They appeared normal without any signs of effusions. Right side was then inspected, she had granulation tissue posteriorly that was suctioned clear. Appeared to have an early retracted area that was inflamed. I elected to make the incision in the tympanic membrane anteriorly. Once this was done thick mucoid effusion was aspirated from the middle ear space. A small T-tube was placed through the incision and antibiotic drops followed. Patient was then awakened in the operating room and taken to recovery in good condition. Condition: stable Disposition: PACU Complications:: None
--- NOTE | 2024-03-09 10:58 | EXP.ANES.I ---
[facility] Anesthesia Record Part I Anesthesia Record I Intake, IV Amount: 400 Hydration: Adequate Estimated blood loss (mL): 0 Urine output (mL): 0 Blood Pressure: 141/96 SaO2: 93 Pulse Rate: 112 Airway Patency: Patent Respiratory Rate: 12 Temperature: 97.3 F Patient is:: Awake Stable to PACU at:: 10:55
--- NOTE | 2024-03-10 07:13 | P.PNANES_ITS ---
[facility] Anesthesia Record Part II Anesthesia Record Part II Discharge Time: 11:25 Destination: Surgical Day Care (OP Surgery) PACU nurse assessment reviewed?: Yes Patient Condition:: Good Anesthesia Complications:: None Swallowing reflex intact?: Yes Airway Patency: Patent Cyanosis?: No Blood Pressure: 148/81 SaO2: 94 Respiratory Rate: 18 Pulse Rate: 91 Temperature: 97.5 F Mental Status: Alert & Oriented Pain level:: 0 Nausea and/or vomitting:: None Intake, IV Amount: 0 Hydration: Adequate
[2024-03-10 07:14] VITALS: BP 148/81; PULSE 91; RESP 18; TEMP 36.4; O2SAT 94
== END 2024-03-09 11:56 | disposition home or self-care (01) ==
PROVIDERS: PCP Physician Assistant; Visit Provider Otolaryngology
PROC: (CPT 69436; principal; 2024-03-09 10:00)
DX: H65.21 Chronic serous otitis media, right ear (principal)
CPT/HCPCS: 69436; 81025; J2405

== ENCOUNTER 2024-05-03 13:46 | Emergency (ER) | payer BC, SELFPAY ==
[2024-05-03 14:00] VITALS: BP 144/77; PULSE 110; RESP 20; TEMP 36.9; O2SAT 98; BMI 40.3
--- NOTE | 2024-05-03 14:22 | EXP.UTC ---
Discharge Plan Disposition Patient Disposition: Home, Self-Care Condition: Good Prescriptions Prescriptions: New ondansetron 4 mg Tablet,Disintegrating 4 mg PO Q8H PRN (Reason: Nausea) Qty: 12 0RF No Action lisinopril 40 mg tablet 40 mg PO DAILY fluticasone propionate [Flonase Allergy Relief] 50 mcg/actuation spray,suspension 2 spray INTRANASAL DAILY Rx Instructions: administer into each nostril loratadine [Claritin] 10 mg Tablet 10 mg PO DAILY montelukast [Singulair] 10 mg Tablet 10 mg PO DAILY Referrals Follow up/Referrals: Jane Kendall PA [Primary Care Provider] - See instructions Activity Restrictions/Add. Instructions Additional Instructions/Restrictions: Drink plenty of fluids. Take tylenol or ibuprofen for pain or fever. Take the medications as directed. Follow up with your regular doctor. GO TO THE ER FOR ANY WORSENING SYMPTOMS Clinical Impressions Clinical Impression: Gastroenteritis, Acute viral syndrome Stand Alone Forms Stand Alone Forms: Work/School Release Instructions Patient Instructions: Viral Gastroenteritis, DI for Viral Gastroenteritis -- Adult, Ondansetron Discharge ED Provider: Dony Osei [facility] General Stated complaint: diarrhea abd pain head ache dizziness Mode of Arrival: Ambulatory Source of Information: Patient Limitations: No Limitations Time Seen by Provider: 05/03/24 14:16 Description of Symptoms (Recalled from Triage Doc. by RN): PATIENT C/O DIARRHEA, DIZZINESS, NAUSEA, HEADACHE, HEENT Symptoms (Recalled from RN notes): Yes Resp Symptoms (Recalled from RN notes): No Skin Symptoms (Recalled from RN notes): No MS Symptoms (Recalled from RN notes): No Functional Status (Recalled from RN notes): WNL History of Present Illness Provider Complaint: She states that for the past 2 days she has had n/v/d, poor appetite and she has felt light headed at times. Related Data Home Medications Medication Instructions Recorded Confirmed lisinopril 40 mg tablet 40 mg PO DAILY Hypertension 12/31/18 05/03/24 fluticasone propionate 50 2 spray intranasal DAILY Allergy 10/14/19 05/03/24 mcg/actuation nasal symptoms spray,suspension (Flonase Allergy Relief) loratadine 10 mg tablet (Claritin) 10 mg PO DAILY Allergy symptoms 08/16/22 05/03/24 montelukast 10 mg tablet 10 mg PO DAILY 12/16/23 05/03/24 (Singulair) Previous Rx's Medication Instructions Recorded ondansetron 4 mg disintegrating 4 mg PO Q8H PRN Nausea #12 tabs 05/03/24 tablet Allergies Allergy/AdvReac Type Severity Reaction Status Date / Time No Known Allergies Allergy Verified 04/13/24 16:00 Worker's Comp Is this a Worker's Comp case?: No [facility] Disclaimer: The information contained in this section may have been updated after the patient was seen, as this information can be updated by other users. Medical History (Updated 05/03/24 @ 14:42 by Dony Osei APRN) Retained myringotomy tube in right ear Hypertension Chronic serous otitis media Tinnitus Hearing loss Retraction pocket of tympanic membrane Chronic otitis media of right ear Acute right otitis media Recurrent acute otitis media of both ears Family History Other Family history of myocardial infarction Social History Smoking Status: Never smoker alcohol intake: never substance use type: denies use current occupational status: employed Travel in the last 8 weeks: None household members: family housing: house ROS Obtained: Yes All systems reviewed & no additional complaints except as documented Constitutional Constitutional: Denies chills, Denies fever(s) and Reports poor appetite ENT Ears, Nose, Mouth, and Throat: Denies dizziness and Denies sore throat Cardiovascular Cardiovascular: Denies dyspnea Respiratory Respiratory: Denies chest congestion, Denies cough and Denies dyspnea Gastrointestinal Gastrointestingal: Reports as per HPI; Denies abdominal pain Genitourinary Female Genitourinary: Denies difficulty voiding, Denies dysuria, Denies hematuria, Denies urinary frequency, Denies urinary incontinence, Denies urinary hesitancy and Denies urinary urgency Musculoskeletal Musculoskeletal: Denies arthralgias Integumentary/Breasts Skin/Breast: Denies rash Neurologic Neurologic: Denies dizziness Physical Exam General General appearance: alert and in no apparent distress Head Head exam: atraumatic and normocephalic Eye Eye exam: Present normal appearance, PERRL and EOMI ENT ENT exam: Present normal exam, normal oropharynx, mucous membranes moist, TM's normal bilaterally and normal external ear exam Neck Neck exam: Present normal inspection, full ROM and trachea midline; Absent tenderness, meningismus or lymphadenopathy Chest Chest inspection: Present normal inspection and symmetric chest wall rise; Absent tenderness, rash or abscess Respiratory Respiratory exam: Present normal lung sounds bilaterally; Absent respiratory distress, wheezes or stridor Cardiovascular Cardiovascular exam: Present regular rate and normal rhythm; Absent irregular rhythm, systolic murmur, diastolic murmur or JVD Abdominal Exam Abdominal exam: Present soft and hyperactive bowel sounds; Absent distention, tenderness, guarding, rebound, rigidity, psoas sign, obturator sign, heel tap sign, Peck's sign, Rovsing's sign or tenderness at McBurney's Point Extremities Exam Extremities exam: Present normal inspection and full ROM; Absent tenderness Back Exam Back exam: Present normal inspection and full ROM; Absent tenderness, CVA tenderness (R) or CVA tenderness (L) Neurological Exam Neurological exam: Present alert, oriented X3 and CN II-XII intact Psychiatric Psychiatric exam: Present normal affect and normal mood Skin Skin exam: Present warm, dry, intact and normal color Lymphatic Lymphatic Findings: no adenopathy Medical Decision Making Medical Records Medical records reviewed: No I reviewed the patient's medical records. Tuan Inquiry Pt receiving controlled substance: No Vital Signs: 05/03/24 14:00 Temperature 98.4 F Temperature Source Oral Pulse Rate [Left Brachial] 110 H Respiratory Rate 20 Blood Pressure [Left Arm] 144/77 H Blood Pressure Mean [Left Arm] 99 Blood Pressure Source [Left Arm] Automatic Cuff Blood Pressure Position [Left Arm] Sitting 02 Sat by Pulse Oximetry 98 Oxygen Delivery Method Room Air Lab Data Lab results reviewed: Yes I reviewed the patient's lab results.
[2024-05-03 14:45] VITALS: BP 144/77; PULSE 110; RESP 20; TEMP 36.9; O2SAT 98
[2024-05-03 14:54] LABS: Coronavirus 19, PCR Not Detected (NotDetected); Influenza A, PCR Not Detected (NotDetected); Influenza B, PCR Not Detected (NotDetected)
== END 2024-05-03 14:51 | disposition home or self-care (01) ==
PROVIDERS: Emergency Provider Nurse Practitioner Family; PCP Physician Assistant
DX: A08.4 Viral intestinal infection, unspecified (principal); R11.2 Nausea with vomiting, unspecified; R19.7 Diarrhea, unspecified; R42 Dizziness and giddiness
CPT/HCPCS: 87636; 99212; 99214; G0463

== ENCOUNTER 2024-09-19 09:25 | Outpatient (CLI) | payer BC, SELFPAY ==
--- OUTSIDE RECORDS SUMMARY | 2024-09-19 09:27 | XMS_ITS | Patient Health Record ---
[facility] Address [address] [place] [id number] Care Team Providers Care Ms Sql Developer Name Role Phone Americo Hawk Primary Care Provider [phone] Jane Kendall Unavailable [phone] ALLERGIES No Known Allergies REASON FOR REFERRAL No Information MEDICATIONS Medication SIG (Take, Route, Frequency, Duration) Notes Start Date End Date Status Montelukast Sodium 10 MG 1 tab(s) orally once a day for 90 days Active Flonase Allergy Relief 50 MCG/ACT 1 spray(s) intranasally once a day for 30 day(s) Active Claritin 10 MG 1 tab(s) orally once a day Active Montelukast Sodium 10 MG Take 1 tablet b y mouth once daily for 90 Active Lisinopril 40 MG 1 tab(s) orally once a day Active IMMUNIZATIONS Vaccine Route Administration Date Status Comme nts COVID 19 Moderna Unknown 06/23/2021 Administered SOCIAL HISTORY Sex Assigned At : Social History Observation Description Sex Assigned At Unknown PROBLEMS Problem Type ICD Code Onset Dates Problem Status W/U Status Risk SNOMED Code Notes Problem Vitamin D deficiency (E55.9) Active confirmed 26689669 Problem Essential hypertension (I10) Active confirmed 92981572 Problem Depression with anxiety (F41.8) Active confirmed 773427718 Problem Mixed hyperlipidemia (E78.2) Active confirmed 898220852 Problem Non-seasonal allergic rhinitis, unspecified trigger (J30.89) Active confirmed 24413526 Problem Mildly obese (E66.9) Active confirmed 564898121 VITAL SIGNS Heart Rate 82 /min 09/16/2024 Blood pressure diastolic 78 mm Hg 09/16/2024 Height 66 in 09/16/2024 Blood pressure systolic 118 mm Hg 09/16/2024 Weight 259 lbs 09/16/2024 BMI 41.80 kg/m2 09/16/2024 Encounters Encounter Location Date Provider Diagnosis [facility] [address] [place] [phone] 09/16/2024 Jane Kendall Essential hypertensi on I10 ; Non-seasonal allergic rhinitis, unspecified trigger J30.89 ; Vitamin D deficiency E55.9 and Mixed hyperlipidemia E78.2 ASSESSMENTS Encounter Date Diagnosis Assessment Notes Treatment Notes Treatment Clinical Notes 09/16/2024 Essential hypertension (ICD-10 - I10) 09/16/2024 Non-seasonal allergi c rhinitis, unspecified trigger (ICD-10 - J30.89) 09/16/2024 Vitamin D deficiency (ICD-10 - E55.9) 09/16/2024 Mixed hyperlipidemia (ICD-10 - E78.2) PLAN OF TREATMENT Pending Test Test Name Order Date H-TSH 09/16/2024 H-CBC 09/16/2024 H-VITAMIN D 09/16/2024 H-Lipid Panel 09/16/2024 H-CMP 09/16/2024 Insurance Providers Payer Name Payer Address Payer Phone Subscriber Number Group Number Insured Name Patient Relationship to Insured Coverage Start Date Coverage End Date [employer] [address] [place] [address] [id number] JACK ELIAS Self - patient is the insured MEDICAL (GENERAL) HISTORY Medical History History ICD Code Hypertension Seasonal allergies Surgical History Surgery Date(Month/Year) [place] Teeth Extracted 2006 Ear Tube in Right Ear 02/2024
--- OUTSIDE RECORDS SUMMARY | 2024-09-19 09:27 | XMS_ITS ---
Author Organization [facility] Address [address] [place] [phone] Care Team Providers Care Outboard Motors Experimental Mechanic Name Role Phone Americo Hawk Primary Care Provider [phone] Jane Kendall Unavailable [phone] ALLERGIES No Known Allergies RESULTS Component Value Reference Range Notes CBC Venipuncture (in house) Reviewed date:09/13/2023 01:22:11 PM Interpretation: Performing Lab: Notes/Report: wbc 8.4 3.5 - 10 lymph 41.4 15 - 50 mid 5.3 2 - 15 gran 53.3 35 - 80 rbc 4.69 3.5 - 5.5 hgb 13.9 11.5 - 16.5 hct 41.1 35 - 55 mcv 87.7 75 - 100 mch 29.6 25 - 35 mchc 33.7 31 - 38 platlet 403 100 - 400 Lipid Panel (in house) Reviewed date:09/15/2023 10:54:22 PM Interpretation: Performing Lab: Notes/Report: Total Cholesterol 208 0 - 200 md/dL HDL 44 45 - 45 mg/dL Trigs 169 0 - 150 LDL 130 0 - 100 mg/dL non-HDL 164 TC/HDL 4.7 P-Comprehensive Metabolic Pa [place] ([facility]) Reviewed date:09/15/2023 10:54:21 PM Interpretation: Performing Lab: Notes/Report: Test performed by [employer] [facility] , [address], [place] [address] Cayden Paulson MD, Child Care Attendant CLIA: [id number] Sodium 140 135-145 mEq/L Potassium 4.3 3.5-5.3 mEq/L Chloride 102 97-108 mEq/L CO2 26 22-32 mEq/L Glucose 87 65-99 mg/dL BUN 8 6-20 mg/dL Creatinine 0.61 0.50-1.00 mg/dL Calcium 9.7 8.6-10.4 mg/dL eGFR by Creatinine 121 >59 mL/min/1.73m2 Protein 7.8 6.0-8.3 g/dL Albumin 4.6 3.5-5.3 g/dL Alkaline Phosphatase 93 35-121 IU/L ALT (SGPT) 59 <5-47 IU/L AST (SGOT) 42 <5-40 IU/L Bilirubin, Total 0.2 <0.2-1.2 mg/dL A/G Ratio 1.4 1.1-2.5 mg/dL P-TSH reflex to FT4 Reviewed date:09/15/2023 10:54:22 PM Interpretation: Performing Lab: Notes/Report: Test performed by [employer] [address] [place] [address] , [address], [place] [id number] Cayden Paulson MD, Child Care Attendant CLIA: [id number] TSH reflex to FT4 1.43 0.43-5.25 mU/L P-Vitamin D 25-Hydroxy Reviewed date:09/15/2023 10:54:22 PM Interpretation: Performing Lab: Notes/Report: Test performed by [employer] [address] [place] [address] , [address], [place] [address] Cayden Paulson MD, Child Care Attendant CLIA: [id number] Vitamin D 25-Hydroxy 42.1 30.0-100.0 ng/mL Interpretation of Vitamin D 25 OH: < 20 ng/mL - Deficiency 20 - 29 ng/mL - Insufficiency 30 - 100 ng/mL - Sufficiency > 100 ng/mL - Super-therapeutic- toxicity may occur above this level. Clinical correlation required. REASON FOR REFERRAL Diagnosis 1 Recurrent otitis med ia, right (H66.91) Referral Organization [facility] Referring Provider First Name Jane Referring Provider Last Name Enoch Referring Provider Speciality Physician Area Counselor Referred Provider ENT, . Referred Provider Specialty ENT General Notes Jane Kendall 08/28 6:39:30 AM > Will make ENT appt, Shirley Earl 09/16/2023 10:42:57 AM > faxed referral, they will contact pt Referral Priority Routine REASON FOR VISIT ckup & refills MEDICATIONS Medication SIG (Take, Route, Frequency, Duration) Notes Start Date End Date Status Montelukast Sodium 10 MG 1 tab(s) orally once a day for 90 days Active Lisinopril 40 MG 1 tab(s) orally once a day Active Claritin 10 MG 1 tab(s) orally once a day Active Flonase Allergy Relief 50 MCG/ACT 1 spray(s) intranasally once a day for 30 day(s) Active VITAL SIGNS Weight 257 lbs 09/12/2023 Blood pressure systolic 120 mm Hg 09/12/20 23 Blood pressure diastolic 82 mm Hg 023 Heart Rate 80 /min 09/12/2023 Height 66 in 09/12/2023 BMI 41.48 kg/m2 09/12/2023 Encounters Encounter Location Date Provider Diagnosis [facility] [address] [facility] [address] [facility] [address] [place], [place] [phone] 09/12/2023 Jane Kendall Essential hypertensi on I10 ; Non-seasonal allergic rhinitis, unspecified trigger J30.89 ; Recurrent otitis media, right H66.91 ; Vitamin D deficiency E55.9 and Mixed hyperlipidemia E78.2 ASSESSMENTS Encounter Date Diagnosis Assessment Notes Treatment Notes Treatment Clinical Notes 09/12/2023 Essential hypertension (ICD-10 - I10) 09/12/2023 Non-seasonal allergi c rhinitis, unspecified trigger (ICD-10 - J30.89) 09/12/2023 Recurrent otitis media, right (ICD-10 - H66.91) Patient states ear stays infected and antibiotics do not help. Would like a referral to ENT. 09/12/2023 Vitamin D deficiency (ICD-10 - E55.9) 09/12/2023 Mixed hyperlipidemia (ICD-10 - E78.2) PLAN OF TREATMENT Medication Medication Name Sig Start Date Stop Date Notes Montelukast Sodium 10 MG 1 tab(s) orally once a day for 90 days Lisinopril 40 MG 1 tab(s) orally once a day Treatment Notes Assessment Notes Recurrent otitis media, right Patient st ates ear stays infected and antibiotics do not help. Would like a referral to ENT. Referrals Referral Date Details . ENT Next Appt Details Follow Up: via phone to repo rt test results, Reason: Progress Notes * Examination Category Sub-Category Detail Notes General Examination HEENT: sclera and c onjunctiva clear, PERRLA, right TM erythematous, left TM normal Heart: RSR Lungs: clear to auscultatio n Abdomen: bowel sounds present , soft and nontender Extremities: no leg edema General Appearance: NAD Skin: normal, no rash Neurologic Exam: Intact, gait normal Neck: supple, no lymphaden opathy Oral cavity: no lesions, mucosa m oist and WNL, no erythema Peripheral pulses: normal (2+) bilatera lly Chest: normal shape and exp ansion History and Physical Notes * HPI (History of Present Illness) Category Sub-Category Detail Notes Cardiology Blood Pressure Elevated Pt here to f/u on hypertension, states she is doing well and does not have any concerns HPI Here for follow up on: hyperlipi demia, pt is fasting today Consultation Request Notes Referral Date Referring Provider Referred Provider Anderson carranza 09/13/2023 Jane Kendall ENT, .
--- OUTSIDE RECORDS SUMMARY | 2024-09-19 09:27 | XMS_ITS ---
Author Organization [facility] Address [address] [facility] [address] [facility] [address] [place] [phone] Care Team Providers Care Drilling Machine Runner Name Role Phone Americo Hawk Primary Care Provider Jane Kendall Unavailable [phone] REASON FOR VISIT Test results Encounters Encounter Location Date Provider Diagnosis [facility] [address] [facility] [address] [place] [phone] 09/15/2023 Jane Kendall PLAN OF TREATMENT No Information
--- OUTSIDE RECORDS SUMMARY | 2024-09-19 09:27 | XMS_ITS ---
Author Organization [facility] Address [address] [facility] [address] [facility] [address] [place] [phone] Care Team Providers Care Movie Stunt Performer Name Role Phone Americo Hawk Primary Care Provider Jane Kendall Unavailable [phone] ALLERGIES No Known Allergies REASON FOR VISIT refills MEDICATIONS Medication SIG (Take, Route, Frequency, [...] 1 tab(s) orally once a day Active VITAL SIGNS Weight 259 lbs 09/16/2024 Blood pressure systolic 118 mm Hg 09/16/20 24 Blood pressure diastolic 78 mm Hg 024 Heart Rate 82 /min 09/16/2024 Height 66 in 09/16/2024 BMI 41.80 kg/m2 09/16/2024 Encounters Encounter Location Date Provider Diagnosis [facility] [address] [facility] [address] [facility] [address] [place] [phone] 09/16/2024 Jane Kendall Essential hypertensi on I10 [...] MG 1 tab(s) orally once a day Pending Test Test Name Order Date H-TSH 09/16/2024 H-CBC 09/16/2024 H-VITAMIN D 09/16/2024 H-Lipid Panel 09/16/2024 H-CMP 09/16/2024 Next Appt Details Follow Up: via phone to repo rt test results, Reason: Progress Notes * Examination Category Sub-Category Detail Notes General Examination HEENT: unremarkable Heart: RSR Lungs: [...] of Present Illness) Category Sub-Category Detail Notes HPI Patient is here today for refill s. Pt sts that she has no new concerns or complaints at this time
[2024-09-19 09:52] LABS: Basophils # 0.2 K/mm3 (0-0.2); Basophils % 1.7 % (0.1-2.0); Eosinophils # 0.3 K/mm3 (0.0-0.4); Hematocrit 40.9 % (37.0-47.0); Hemoglobin 14.1 g/dL (12.2-16.2); Lymphocytes # 3.3 K/mm3 (0.7-4.5); Mean Corpuscular HGB Conc 34.4 g/dL (31.8-35.4); Mean Corpuscular Hemoglobin 29.9 pg (27.0-31.2); Mean Platelet Volume 7.5 fl (7.4-10.4); Monocytes # 0.5 K/mm3 (0.1-1.0); Monocytes % 5.7 % (1.7-9.3); Neutrophils # 4.9 K/mm3 (1.8-7.8); Neutrophils % 53.5 % (37.0-80.0); Platelet Count 354 K/mm3 (142-424); Red Cell Distribution Width 14.6 % (11.5-17.5); White Blood Count 9.1 K/mm3 (4.8-10.8)
[2024-09-19 10:14] LABS: 25-OH Vitamin D, Total 52.8 ng/mL (30-100)
[2024-09-19 10:43] LABS: Albumin Level 4.5 g/dl (3.5-5.0); Chloride 106 mmol/L (98-107); Potassium 4.4 mmoL/L (3.5-5.1); Sodium 141 mmol/L (136-145)
[2024-09-19 10:46] LABS: Alanine Aminotransferase 51 U/L (12-78); Albumin/Globulin Ratio 1.3 (1.1-1.8); Alkaline Phosphatase 98 U/L (38-126); Anion Gap 15.4 mEq/L (5-15); Aspartate Amino Transferase 40 U/L (14-36); Bilirubin,Total 0.4 mg/dl (0.2-1.3); Blood Urea Nitrogen 16 mg/dl (7-17); Carbon Dioxide 24 mmol/L (22.0-30.0); Cholesterol 182 mg/dl (140-200); Estimated Glomerular Filt Rate 96 ml/min (>60); GFR (African American) 116 ML/MIN (>60); Globulin 3.6 g/dL (1.3-3.2); Total Protein,Serum 8.1 g/dl (6.3-8.2); Triglycerides 161 mg/dl (30-150); VLDL Cholesterol 32 mg/dL (0-40)
[2024-09-19 10:47] LABS: Calcium 9.8 mg/dl (8.4-10.2); Chol/HDL Ratio 4.1 (1-3.5); Glucose 95 mg/dl (74-100); HDL Cholesterol 44 mg/dl (40-60)
[2024-09-19 10:58] LABS: Direct LDL Cholesterol 113.09 mg/dL (100-129)
[2024-09-19 12:09] LABS: Thyroid Stimulating Hormone 1.24 uIU/mL (0.465-4.68)
== END 2024-09-19 23:59 | disposition home or self-care (01) ==
PROVIDERS: PCP Physician Assistant; Visit Provider Physician Assistant
DX: E78.2 Mixed hyperlipidemia (principal); I10 Essential (primary) hypertension; E55.9 Vitamin D deficiency, unspecified
CPT/HCPCS: 36415; 80050; 80053; 80061; 82306; 84443; 85025

== ENCOUNTER 2024-11-30 14:58 | Emergency (ER) | payer BC, SELFPAY ==
[2024-11-30 16:43] VITALS: BP 157/72; PULSE 103; RESP 18; TEMP 36.7; O2SAT 100; BMI 40.3
--- NOTE | 2024-11-30 16:48 | EXP.UTC ---
Discharge Plan Disposition Patient Disposition: Home, Self-Care Condition: Good Prescriptions Prescriptions: New pjrfnknkoksrynj-wweasgizh-FF [Bromfed DM] 2-30-10 mg/5 mL Syrup 5 ml PO Q6H PRN (Reason: Cough) Qty: 240 0RF ondansetron 4 mg Tablet,Disintegrating 4 mg PO Q8H PRN (Reason: Nausea) Qty: 12 0RF oseltamivir [Tamiflu] 75 mg capsule 75 mg PO BID 5 Days Qty: 10 0RF No Action lisinopril 40 mg tablet 40 mg PO DAILY Referrals Follow up/Referrals: Jane Kendall PA [Primary Care Provider] - See instructions Activity Restrictions/Add. Instructions Additional Instructions/Restrictions: Drink plenty of fluids. Take tylenol or ibuprofen for pain or fever. Take the medications as directed. Follow up with your regular doctor. GO TO THE ER FOR ANY WORSENING SYMPTOMS Clinical Impressions Clinical Impression: Influenza A Stand Alone Forms Stand Alone Forms: Work/School Release Instructions Patient Instructions: DI for Viral Syndrome Print Language Print Language: Greenlandic Discharge ED Provider: Dony Osei [facility] General Stated complaint: headache, body aches, chills, nausea, fever Mode of Arrival: Ambulatory Source of Information: Patient Time Seen by Provider: 11/30/24 16:48 Description of Symptoms (Recalled from Triage Doc. by RN): EXP TO FLU, FEVER, GRIFFITHS, CONGESTION, BA HEENT Symptoms (Recalled from RN notes): No Resp Symptoms (Recalled from RN notes): Yes Skin Symptoms (Recalled from RN notes): No MS Symptoms (Recalled from RN notes): No Functional Status (Recalled from RN notes): WNL Related Data Home Medications ?Medication ?Instructions ?Recorded ?Confirmed lisinopril 40 mg tablet 40 mg PO DAILY Hypertension 12/31/18 11/30/24 Previous Rx's ?Medication ?Instructions ?Recorded djfqggbwamjfkzr-zlbhfeiswhqagdu-HY 5 ml PO Q6H PRN Cough #240 mL 11/30/24 2 mg-30 mg-10 mg/5 mL oral syrup (Bromfed DM) ondansetron 4 mg disintegrating 4 mg PO Q8H PRN Nausea #12 tabs 11/30/24 tablet oseltamivir 75 mg capsule (Tamiflu) 75 mg PO BID 5 days #10 caps 12/01/24 Allergies Allergy/AdvReac Type Severity Reaction Status Date / Time No Known Allergies Allergy Verified 05/07/24 16:08 Worker's Comp Is this a Worker's Comp case?: No [facility] Disclaimer: The information contained in this section may have been updated after the patient was seen, as this information can be updated by other users. Medical History (Updated 12/01/24 @ 10:50 by Dony Osei APRN) Encounter for surveillance of myringotomy and ventilation tube Conductive hearing loss Retained myringotomy tube in right ear Hypertension Chronic serous otitis media Tinnitus Hearing loss Retraction pocket of tympanic membrane Chronic otitis media of right ear Acute right otitis media Recurrent acute otitis media of both ears Family History Other Family history of myocardial infarction Social History Smoking Status: Never smoker alcohol intake: never substance use type: denies use current occupational status: employed Travel in the last 8 weeks: None household members: family housing: house Have you lived/traveled outside US in past 30 days?: No Contact w/someone who lives/traveled outside US past 30 days?: No Exposure to someone with infectious disease in past 14 days?: No Do you have a fever (greater than 100.4 F or 38 C)?: Yes Have you tested positive for COVID-19: No Exposed to someone with COVID-19 in past 14 days?: No Do you have a sore throat?: No Do you have a cough?: Yes Do you have any weakness?: No Do you have any diarrhea?: No Are you experiencing any unusual bleeding?: No Do you have any muscle aches/pain?: Yes Do you have any abdominal pain?: No Are you experiencing loss of taste or smell?: No ROS Obtained: Yes All systems reviewed & no additional complaints except as documented Constitutional Constitutional: Reports chills and Reports fever(s) Eyes Eyes: Denies eye discharge ENT Ears, Nose, Mouth, and Throat: Reports as per HPI Cardiovascular Cardiovascular: Denies chest pain Respiratory Respiratory: Denies chest congestion and Reports cough Gastrointestinal Gastrointestingal: Reports nausea; Denies abdominal pain, constipation, cramping, diarrhea or vomiting Musculoskeletal Musculoskeletal: Denies arthralgias Integumentary/Breasts Skin/Breast: Denies rash Neurologic Neurologic: Denies paresthesias Physical Exam General General appearance: alert and in no apparent distress Head Head exam: atraumatic, normocephalic and normal inspection Eye Eye exam: Present normal appearance, PERRL and EOMI ENT ENT exam: Present normal exam, normal oropharynx, mucous membranes moist, TM's normal bilaterally and normal external ear exam Neck Neck exam: Present normal inspection, full ROM and trachea midline; Absent meningismus or lymphadenopathy Chest Chest inspection: Present normal inspection and symmetric chest wall rise; Absent tenderness Respiratory Respiratory exam: Present normal lung sounds bilaterally; Absent respiratory distress Cardiovascular Cardiovascular exam: Present regular rate and normal rhythm; Absent JVD Abdominal Exam Abdominal exam: Present soft and normal bowel sounds; Absent distention, tenderness or guarding Extremities Exam Extremities exam: Present normal inspection, full ROM and normal capillary refill; Absent calf tenderness Back Exam Back exam: Present normal inspection; Absent tenderness Neurological Exam Neurological exam: Present alert and oriented X3 Psychiatric Psychiatric exam: Present normal affect and normal mood Skin Skin exam: Present warm, dry, intact and normal color Lymphatic Lymphatic Findings: no adenopathy Medical Decision Making Medical Records Medical records reviewed: No I reviewed the patient's medical records. Screening: Per USPSTF and CDC recommendations, given the prevalence of disease in our region, it is our hospital?s policy to screen for HIV and viral Hepatitis for all patients aged 18 and over and those with ongoing risk factors. Tuan Inquiry Pt receiving controlled substance: No Vital Signs: 11/30/24 16:43 Temperature 98.1 F Temperature Source Oral Pulse Rate [Left Radial] 103 H Respiratory Rate 18 Blood Pressure [Left Arm] 157/72 H Blood Pressure Mean [Left Arm] 100 02 Sat by Pulse Oximetry 100 Lab Data Lab results reviewed: Yes I reviewed the patient's lab results.
[2024-11-30 16:55] LABS: UTC Influenza A Antigen Negative (Negative); UTC Influenza B Antigen Negative (Negative)
[2024-11-30 17:32] LABS: UTC Strep Screen (Rapid) Negative (Negative)
[2024-11-30 17:41] LABS: Coronavirus 19, PCR Not Detected (NotDetected); Influenza B, PCR Not Detected (NotDetected)
[2024-11-30 17:47] VITALS: BP 157/72; PULSE 103; RESP 18; TEMP 36.7
[2024-11-30 18:07] LABS: Influenza A, PCR Detected (NotDetected)
== END 2024-11-30 17:48 | disposition home or self-care (01) ==
PROVIDERS: Emergency Provider Nurse Practitioner Family; PCP Physician Assistant
DX: J10.1 Influenza due to other identified influenza virus with other respiratory manifestations (principal)
CPT/HCPCS: 87636; 87804; 87880; 99213; G0381

== ENCOUNTER 2025-09-20 09:42 | Outpatient (CLI) | payer BC, SELFPAY ==
--- OUTSIDE RECORDS SUMMARY | 2021-01-30 05:38 | XMS_ITS | Continuity of Care Document ---
Author Organization [facility] [place] Address [address] [place] [address] Phone Care Team Providers Care Wheel Inspector Name Role Phone Breeding Richard CHAVEZ Unavailable Unavailable Allergies, Adverse Reactions, Alerts Substance Reaction Status Criticality No Known Allergies Active No Inform ation Medications Medication Instructions Dosage Dose Quantity Effective Dates (start - stop) Status Indication Fill Status Comments lisinopril 40 mg tablet take 1 tablet by oral route every day 10 MG 1 tablet 8 - Active Claritin 10 mg tablet take 1 tablet by oral route every day 10 MG 1 tablet 7 - Active Flonase 50 mcg/actuatio n nasal spray,suspen oli spray 1 spray by intranasal route every day in each nostril 10 MG 1 tablet 7 - Active Problems Condition Type Effective Dates (start - stop) Diagnosed Date Clinical Status Comments Gastroenteritis Problem (finding) - Active (qualifier value) Acute sinusitis Problem (finding) - Active (qualifier value) Snoring Problem (finding) - Active (qualifier value) Elevated liver enzymes level Problem (finding) - Active (qualifier value) Mixed hyperlipidemia Problem (finding) - Active (qualifier value) FH: Liver disease Problem (finding) - Active (qualifier value) Eruption Problem (finding) - Active (qualifier value) Acute right otitis media Problem (finding) - Active (qualifier value) Requires diphtheria, tetanus and pertussis vaccination Problem (finding) - Active (qualifier value) Advance Directives Directive Yes / No Effective Date File Name No Information Encounters Encounter Description Practice Location Reason(s) For Visit Diagnoses Date Provider Encounter Disposition [facility], [address] [place] [address] [place], [address], [place] tel:[phone] [facility] No Information 1 Chencho Fulton. [address] [place] [address] [place], [id number] , [place]. tel:[phone] [facility] [employer], [address] [place] [address], [address], [place] tel:[phone] [facility] Hypertension (chief complaint) Obesity, unspecifiedD ietary counseling and surveillance Prescribed Activity/Exe rcise CounselingEs sential (primary) hypertension Mixed hyperlipidem iaElevated liver enzymesFamil y history of fatty liver 8 Dina Calderon. [address] [place], [place] [address], [address]. tel:[phone] [facility], [address] [place] [address], [address], [place] tel:[phone] [facility] hypertension (chief complaint) Obesity, unspecifiedD ietary counseling and surveillance Other specified counselingEs sential (primary) hypertension 8 Jaden Cooney. [address] [place] [address] [place], [id number] , [place]. tel:[phone] [facility], [address] [place] [address], [address], [place] tel:[phone] [facility] hypertension (chief complaint) Obesity, unspecifiedD ietary counseling and surveillance Other specified counselingEs sential (primary) hypertension Need for diphtheria-t etanus-pertu ssis (Tdap) vaccine 7 Dina Calderon. [address] [place] [address] [place], [address]. tel:[phone] [facility], [address] [place] [address], [address], [place] tel:[phone] [facility] Hypertension (chief complaint)Sl eep apnea (FP) (chief complaint) Obesity, unspecifiedD ietary counseling and surveillance Other specified counselingEs sential (primary) hypertension Snoring 7 Dina Calderon. [address] [place], [address]. tel:[phone] [facility], [address] [place] [address], [address], [place] tel:[phone] [facility] Encounter for dental exam and cleaning w abnormal findings 7 Dani Rolon. [address] [facility] [place], [place], [id number] , [place]. tel:[phone] [facility], [address] [place] [address], [address], [place] tel:[phone] [facility] nausea (chief complaint)ea r pain (chief complaint) Obesity, unspecifiedD ietary counseling and surveillance Other specified counselingRi ght acute otitis mediaGastroe nteritis 7 Eliseo Abarca. [address] [facility] [place], [id number] , [place]. tel:[phone] [facility], [address] [place] [address], [address], [place] tel:[phone] [facility] Encounter for dental exam and cleaning w abnormal findings 7 Dani Rolon. [address] [facility] [place], [place], [id number] , [place]. tel:[phone] [facility], [address] [place] [address], [address], [place] tel:[phone] [facility] Dental caries, unspecifiedE ncounter for screening for dental disorders 7 Kt Medellinie . [address] [place], [address]. tel:[phone] [facility], [address] [place] [address], [address], [place] tel:[phone] [facility] annual exam (chief complaint) Encntr for impregnator and drier exam (general) (routine) w/o abn findingsEncn tr for impregnator and drier exam (general) (routine) w/o abn findings 6 Isak Munroe. [address] [place] [address], [id number] , [place]. tel:[phone] [facility], [address] [place] [address], [address], [place] tel:[phone] [facility] hypertension (chief complaint)So re throat (chief complaint) Obesity, unspecifiedD ietary counseling and surveillance Other specified counselingEs sential (primary) hypertension Acute non-recurren t sinusitis, unspecified location 6 Rashelen Calderon. [address] [place] [address], [address]. tel:[phone] [facility], [address] [place] [address], [address], [place] tel:[phone] [facility] hypertension (chief complaint) Obesity, unspecifiedD ietary counseling and surveillance Other specified counselingEs sential (primary) hypertension 6 Dina Calderon. [address] [place] [address], [address]. [phone] [facility], [address] [place] [address], [address], [place] tel:[phone] [facility] hypertension (chief complaint) Obesity, unspecifiedD ietary counseling and surveillance Other specified counselingEs sential (primary) hypertension 6 Rashelen Jonesssica. [address] [place] [address], [address]. [phone] [facility], [address] [place] [address], [address], [place] tel:[phone] [facility] Hyperopia of both eyes with astigmatism 6 Kate Gomes. [address] [place] [address], [address]. tel:[phone] [facility], [address] [place] [address], [address], [place] tel:[phone] [facility] Hyperopia of both eyes with astigmatism 6 Kate Eliseo. [address] [place] [address], [address]. tel:[phone] [facility], [address] [place] [address], [facility], [place] tel:[phone] [facility] blurry vision (chief complaint) Body mass index (BMI) 37.0-37.9, adultDietary counseling and surveillance Other specified counselingHy peropia of both eyes with astigmatismU nspecified astigmatism, bilateralSin usitis chronic, frontal 6 Kate Eliseo. [address] [place] [address], [address]. tel:[phone] [facility] [employer], [address] [place] [address], [facility], [place] tel:[phone] [facility] hypertension (chief complaint) Body mass index (BMI) 38.0-38.9, adultDietary counseling and surveillance Other specified counselingEs sential (primary) hypertension 6 Rasnick Yumiko. [address] [place] [address], [address]. tel:[phone] [facility], [address] [place] [address], [facility], [place] tel:[phone] [facility] hypertension (chief complaint) Obesity, unspecifiedD ietary counseling and surveillance Other specified counselingEs sential (primary) hypertension 6 Rasnick Yumiko. [address] [place] [address], [address]. tel:[phone] [facility], [address] [place] [address], [address], [place] tel:[phone] [facility] Rash (chief complaint) Rash and nonspecific skin eruptionObes ity 0 5 Rasnick Yumiko. [address] [place] [address] [place], [address]. tel:[phone] [facility], [address] [place] [address], [address], tel:[phone] [facility] ankle injury (chief complaint) Left ankle painHyperten oli, Unspecified 4 Momo Dasilva. [address] [place] [address] [place], [id number] , . tel:[phone] [facility], [address] [place] [address], [address], [place] tel:[phone] [facility] earache (chief complaint) Acute suppurative otitis media without spontaneous rupture of eardrum 3 Concetta Walker. [address] [place] [address] [place], [id number] , . tel:[phone] [facility], [address] [place] [address], [address], [place] tel:[phone] [facility] earache (chief complaint) Acute suppurative otitis media without spontaneous rupture of eardrumHyper tension, Unspecified 2 Maurisio Haywood. [address] [place] [address], [id number] , . tel:[phone] Family History Family Member Type Diagnosis Age At Onset Mother Problem (finding) depression Sister Problem (finding) depression Father Problem (finding) depression Immunizations Vaccine Date Status Comments Tdap administered Note: Pt instru cted to wait 15 mins. ; Source: New Immunization Record Payers Payer name Insurance type Identifiers Authorization(s) [employer] CI Member ID:Subscr iber ID:Group Name: Coverage Status Eligibility Check on: [id number] ship to Subscriber: selfPayer Address: [address] [address], [place], [place], [id number] Phone: Social History Type Description Quantity Date Captured Comments Sex Female Smoking Status No Information Gender Identity Female Current Gender Female (finding) Chief Complaint And Reason For Visit No Information Plan Of Treatment Date Type Action Status Goal Dietary management education , guidance, and counseling completed Goal Tobacco cessation counseling completed Goal Dietary management education , guidance, and counseling completed Goal Dietary management education , guidance, and counseling completed Goal Tobacco cessation counseling completed Goal Dietary management education , guidance, and counseling completed Goal Dietary management education , guidance, and counseling completed Goal Dietary management education , guidance, and counseling completed Goal Dietary management education , guidance, and counseling completed Goal Dietary management education , guidance, and counseling completed Goal Dietary management education , guidance, and counseling completed Goal Dietary management education , guidance, and counseling completed Goal Dietary management education , guidance, and counseling completed Goal Tobacco cessation counseling completed Goal Dietary management education , guidance, and counseling completed Goal Tobacco cessatio n counseling or tobacco education counseling completed Referral Referred To: Stephen Granger [address] [place] [phone] Ordered: Referrals: Pulmonology. Stephen Granger. Evaluate and treat Appointment date/timeframe: 01/15/2017 ordered Referral Ordered: CR ANKLE 3 VIEWS Left ordered History Of Present Illness Encounter Date Complaint History Of Prese nt Illness Hypertension It is currently stable. Risk factors include family history HTN, gout or CAD, high salt intake, inactive lifestyle and obesity. Pertinent negatives include chest pain, claudication, confusion, diaphoresis, dyspnea, epistaxis, fatigue, headache, hematuria, irregular heartbeat/palpitations, nausea, tinnitus, transient weakness, tremor, visual disturbances and vomiting. Additional information: needs refill on bp meds hypertension It is currently stable. Risk factors include family history HTN, gout or CAD, high salt intake, inactive lifestyle and obesity. The hypertension is exacerbated by nothing. Pertinent negatives include chest pain, claudication, confusion, diaphoresis, dyspnea, epistaxis, fatigue, headache, hematuria, irregular heartbeat/palpitations, nausea, tinnitus, transient weakness, tremor, visual disturbances and vomiting. Additional information: Not took meds today yet hypertension The symptoms beg an gradually. It is currently stable. Risk factors include family history HTN, gout or CAD, high salt intake, inactive lifestyle and obesity. The hypertension is exacerbated by nothing. Pertinent negatives include chest pain, claudication, confusion, diaphoresis, dyspnea, epistaxis, fatigue, headache, hematuria, irregular heartbeat/palpitations, nausea, tinnitus, transient weakness, tremor, visual disturbances and vomiting. Sleep apnea (FP) The patient's s ymptoms began 3 months ago. The symptoms are moderate and worsening. These complaints are episodic. Relevant history: a BMI of 38.40, a neck circumference of 17.00 inches, takes 2 hours to fall asleep per night, awakens 3 times per night and hypertension. Patient has not had: adenoidectomy, GGA, MMA, rhinoplasty and tonsillectomy. Denies aggravating factors. The apnea is not improved with antihistamines, extended sleep period, napping, nasal decongestants, saline nose sprays, sleeping prone or weight loss. The patient is also experiencing awakening with choking, awakening with shortness of breath, difficulty initiating sleep, difficulty maintaining sleep, gasping during sleep, nasal congestion, snoring (reported by pt.), snoring (reported by others) and witnessed apnea or irregular nighttime breathing. The patient denies depression, difficulty concentrating, headache, heartburn, insomnia, irritability, nocturia, non-restorative sleep, personality changes, poor or worsening memory, sleep attacks, sore throat upon awakening, weight gain or wheezing. Additional information: excessice daytime sleepiness. 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 Hypertension The symptoms beg an gradually. It is currently stable. Risk factors include family history HTN, gout or CAD, high salt intake, inactive lifestyle and obesity. The hypertension is exacerbated by nothing. Pertinent negatives include chest pain, claudication, confusion, diaphoresis, dyspnea, epistaxis, fatigue, headache, hematuria, irregular heartbeat/palpitations, nausea, tinnitus, transient weakness, tremor, visual disturbances and vomiting. Additional information: pt reports BP has been running 140s/90s at [facility] ear pain The patient stat es the ear pain is in the right ear. Associated symptoms include ear pressure, fullness in ears, nausea and vomiting. Pertinent negatives include bleeding from ear(s), congestion (nasal), cough, decreased appetite, dizziness, drainage (clear), drainage (purulent), ear popping, fever, hearing deficit, irritability, loss of balance, malaise, mastoid bone tenderness, redness/swelling outer ear and tooth pain. nausea It occurs interm ittently. Associated symptoms include headache and vomiting. Pertinent negatives include abdominal pain, anxiety, blood in stool, chest pain, cough, decreased appetite, diarrhea, dizziness, fever, flatulence, jaundice, lightheadedness and photophobia. Additional information: vomting began yesterday, none today, sl nausea still,no fever and hasd strep screen ER yesterday neg.. annual exam The patient stat es she uses none for control. Last LMP was 09/25/2016. Her menses is irregular. Negative for dysmenorrhea and menorrhagia. Negative for: breast discharge, breast lump(s) and breast pain. Positive for: breast self exam. Menopausal symptoms negative for: hot flashes, insomnia, night sweats and vaginal dryness. Pertinent negatives include abnormal vaginal bleeding, anxiety, decreased libido, depression, dyspareunia, sexual dysfunction, urinary incontinence, urinary urgency, vaginal discharge and vaginal itching. She does not take calcium. She does not take Vitamin D. She does take multivitamins occasionally. She does not take Folic acid.The patient states her exercise level is moderate and frequency is daily. The patient does not use tobacco. Tobacco cessation has been discussed. She has been exposed to passive smoke. She does not drink alcohol. Additional information: never had pap before. no family hx breast cancer. Sore throat Onset: 2 Days. T he severity of the problem is moderate. The problem has worsened. The symptoms are persistent. The patient denies aggravating factors. The patient denies relieving factors. Associated symptoms include pharyngitis and postnasal drainage. Pertinent negatives include chills/rigors, cough, dyspnea, facial pain, fatigue, fever, headache, hemoptysis, myalgia, nasal congestion, otalgia, rash, rhinitis, sinus pressure, sputum, tooth pain or wheezing. hypertension The symptoms beg an gradually. It is currently stable. Risk factors include family history HTN, gout or CAD, high salt intake, inactive lifestyle and obesity. Pertinent negatives include chest pain, claudication, confusion, diaphoresis, dyspnea, epistaxis, fatigue, headache, hematuria, irregular heartbeat/palpitations, nausea, tinnitus, transient weakness, tremor, visual disturbances and vomiting. Additional information: needs refill on lisinopril hypertension Risk factors inc lude family history HTN, gout or CAD, high salt intake, inactive lifestyle and obesity. The hypertension is exacerbated by stress. Associated symptoms include fatigue and headache. Pertinent negatives include chest pain, claudication, confusion, diaphoresis, dyspnea, epistaxis, hematuria, irregular heartbeat/palpitations, nausea, tinnitus, transient weakness, tremor, visual disturbances and vomiting. Additional information: pt reports having an episode of high BP at work last night, she got flushed and had headache, BP was 138/101. hypertension The symptoms beg an gradually. It is currently stable. Risk factors include family history HTN, gout or CAD, high salt intake, inactive lifestyle and obesity. The hypertension is exacerbated by nothing. Pertinent negatives include chest pain, claudication, confusion, diaphoresis, dyspnea, epistaxis, fatigue, headache, hematuria, irregular heartbeat/palpitations, nausea, tinnitus, transient weakness, tremor, visual disturbances and vomiting. 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 pt reports needs refill on lisinopril. BP runs normal at home but pt did not bring log. blurry vision The 25 year old female presents for evaluation of blurry vision in the right eye and left eye. It started about 1 year(s) ago. It occurs always. It affects distance vision. The condition is mild. The condition is described as blurring. In addition, the condition is associated with daily activity and chores. Patient denies eye pain, flashes and floaters. Associated symptoms include: headaches. hypertension Risk factors inc lude family history HTN, gout or CAD, high salt intake, inactive lifestyle and obesity. Associated symptoms include headache. Pertinent negatives include chest pain, claudication, confusion, diaphoresis, dyspnea, epistaxis, fatigue, hematuria, irregular heartbeat/palpitations, nausea, tinnitus, transient weakness, tremor, visual disturbances and vomiting. hypertension The symptoms beg an gradually. It is currently getting worse. Risk factors include family history HTN, gout or CAD, high salt intake, inactive lifestyle and obesity. The hypertension is exacerbated by nothing. Associated symptoms include headache. Pertinent negatives include chest pain, claudication, confusion, diaphoresis, dyspnea, epistaxis, fatigue, hematuria, irregular heartbeat/palpitations, nausea, tinnitus, transient weakness, tremor, visual disturbances and vomiting. Rash The patient pres ents for Rash. This episode began 3 days ago. The symptom(s) are described as moderate and worse. Affected area(s) include back. The patient describes the affected area(s) as itchy and red. Associated symptoms include erythema (skin), painful rash and pruritus. Functional Status Date Description Comments No Information Instructions Date Instruction Additional Infor mation low salt, low fat di et encouragedtake medication as directedf/u in 6-9 months, sooner if needed Related to Essential (primary) hypertension recheck liver enzyme savoid excessive tylenol or alcohol use Related to Elevated liver enzymes Prescribed activity/ exercise education Related to Prescribed Activity/Exercise Counseling Dietary management e ducation, guidance, and counseling Related to Dietary Surveillance and Counseling rx for lisinopril 40 mg dailylow na diet Related to Essential (primary) hypertension Prescribed activity/ exercise education Related to Prescribed activity/exercise education Dietary management e ducation, guidance, and counseling Related to Dietary Surveillance and Counseling low salt diet, exerc ise, and weight loss as directedlabs todayincrease lisinopril to 40mg PO dailyRTC in 6 months or soone if needed Related to Essential (primary) hypertension Prescribed activity/ exercise education Related to Prescribed activity/exercise education Dietary management e ducation, guidance, and counseling Related to Dietary Surveillance and Counseling increase lisinopril to 30mg PO dailykeep bp logif bp staying above 140/90 RTC in 2 weeks, if bp below 140/90 follow-up in 3 months for fasting labs and assessment.low salt diet discussed. Related to Essential (primary) hypertension Prescribed activity/ exercise education Related to Prescribed activity/exercise education Dietary management e ducation, guidance, and counseling Related to Dietary Surveillance and Counseling Sx are improving, Manisha bruner, clear liquids, advance diet to BRAT diet Related to Gastroenteritis Rx given, hydrate we ll, if sx worsen RTC Related to Right acute otitis media Prescribed activity/ exercise education Related to Prescribed activity/exercise education Dietary management e ducation, guidance, and counseling Related to Dietary Surveillance and Counseling Pt counseled on cont inuing monthly self breast exams and instruction given for proper technique. Pt advised to increase exercise with goal of 30 min per day, and to take multivitamin, calcium, and vitamin D supplement. Pt followed by PCP for other preventative care. Related to Encntr for impregnator and drier exam (general) (routine) w/o abn findings amoxicillin x 10 day s as directedmay continue DayQuil OTC, cautioned to check BP because OTC meds can elevate BPRTCif not better or worse Related to Acute non-recurrent sinusitis, unspecified location lisinopril refilled labs todayfollow-up in 3 months Related to Essential (primary) hypertension Dietary management e ducation, guidance, and counseling Related to Dietary Surveillance and Counseling Prescribed activity/ exercise education Related to Prescribed activity/exercise education Increase activity. Related to Es sential (primary) hypertension Follow a low sodium diet. Relate d to Essential (primary) hypertension increase lisinopril to 20mg dailykeep BP log and bring to follow-up in 3 months. Related to Essential (primary) hypertension Dietary management e ducation, guidance, and counseling Related to Dietary Surveillance and Counseling Prescribed activity/ exercise education Related to Prescribed activity/exercise education continue lisinopril 10mginstructed pt to monitor BP at home and log results, drop log off at clinic x 2 weeks. if reading are high we will adjust medication. RTC in 3 months unless BP is above 140/90 then RTC sooner.will check fasting labs in 3 months Related to Essential (primary) hypertension Dietary management e ducation, guidance, and counseling Related to Dietary Surveillance and Counseling Prescribed activity/ exercise education Related to Prescribed activity/exercise education Follow up - Return in 1 year Prescribed activity/ exercise education Related to Prescribed activity/exercise education Dietary management e ducation, guidance, and counseling Related to Dietary Surveillance and Counseling Impression/Plan - OT C odalis qhs PO. OTC Flonase once each morning for at least 2 weeks, no more than 30 days without informing family doctor due to HTN. 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 increase lisinopril to 10mg dailyencouraged pt to check BP regularly RTC if greater than 140/90follow-up in 3 months Related to Essential (primary) hypertension Prescribed activity/ exercise education Related to Prescribed activity/exercise education Dietary management e ducation, guidance, and counseling Related to Dietary Surveillance and Counseling keep bp log at home, bring to next apptadvised low salt diet, exercise, and weight losslisinopril 5mg PO daily RTC in 1 week for bp check and follow-up assessment Related to Essential (primary) hypertension Prescribed activity/ exercise education Related to Prescribed activity/exercise education Dietary management e ducation, guidance, and counseling Related to Dietary Surveillance and Counseling valacyclovir x 7 day sbenadryl cream to lesionibuprofen or tylenol ofr painRTC if worse or not better. Related to Rash and nonspecific skin eruption Dietary management e ducation, guidance, and counseling Related to Obesity, unspecified Prescribed activity/ exercise education Related to Obesity, unspecified Assessments Type Assessment Date No Information
--- OUTSIDE RECORDS SUMMARY | 2024-09-16 11:45 | XMS_ITS ---
Author Organization [facility] Address [address] [place] [id number] Care Team Providers Care Assistance Specialist Name Role Phone Americo Hawk Primary Care Provider Jane Kendall Unavailable [phone] Allergies No Known Allergies Results Component Value Reference Range Notes H-TSH Reviewed date:09/23/2024 08:55:09 AM Interpretation: Performing Lab: Notes/Report: TSH 1.24 0.465-4.68 uIU/mL H-CBC Reviewed date:09/23/2024 08:55:09 AM Interpretation: Performing Lab: Notes/Report: WBC 9.1 4.8-10.8 K/mm3 RBC 4.70 4.20-5.40 M/mm3 HGB 14.1 12.2-16.2 g/dL HCT 40.9 37.0-47.0 % MCV 87.0 81-99 fl MCH 29.9 27.0-31.2 pg MCHC 34.4 31.8-35.4 g/dL RDW 14.6 11.5-17.5 % PLT 354 142-424 K/mm3 MPV 7.5 7.4-10.4 fl NE% 53.5 37.0-80.0 % LY% 36.0 10-50 % MO% 5.7 1.7-9.3 % EO% 3.0 0.1-12.0 % BA% 1.7 0.1-2.0 % NE# 4.9 1.8-7.8 K/mm3 LY# 3.3 0.7-4.5 K/mm3 MO# 0.5 0.1-1.0 K/mm3 EO# 0.3 0.0-0.4 K/mm3 BA# 0.2 0-0.2 K/mm3 H-VITAMIN D Reviewed date:09/23/2024 08:55:09 AM Interpretation: Performing Lab: Notes/Report: TVITD 52.8 30-100 ng/mL Deficient <20 ng/mL Insufficient 20-30 ng/mL Sufficient 30-100 ng/mL Potential Toxicity >100 ng/mL H-Lipid Panel Reviewed date:09/23/2024 08:55:09 AM Interpretation: Performing Lab: Notes/Report: Patient Fasting? Y TRIG 161 30-150 mg/dl CHOL 182 140-200 mg/dl DLDL 113.09 100-129 mg/dL VLDL 32 0-40 mg/dL HDL 44 40-60 mg/dl CHLHDL 4.1 1-3.5 H-CMP Reviewed date:09/23/2024 08:55:09 AM Interpretation: Performing Lab: Notes/Report: NA 141 136-145 mmol/L K 4.4 3.5-5.1 mmoL/L CL 106 98-107 mmol/L CO2 24 22.0-30.0 mmol/L GAP 15.4 5-15 mEq/L BUN 16 7-17 mg/dl CREATT 0.70 0.52-1.04 mg/dl GFRAA 116 >60 ML/MIN EGFR 96 >60 ml/min GLU 95 74-100 mg/dl CA 9.8 8.4-10.2 mg/dl BILIT 0.4 0.2-1.3 mg/dl AST 40 14-36 U/L ALT 51 12-78 U/L TP 8.1 6.3-8.2 g/dl ALB 4.5 3.5-5.0 g/dl GLOB 3.6 1.3-3.2 g/dL AGRATIO 1.3 1.1-1.8 ALP 98 38-126 U/L REASON FOR VISIT refills Medications Medication SIG (Take, Route, Frequency, Duration) Notes Start Date End Date Status Montelukast Sodium 10 MG 1 tab(s) orally once a day; Duration: 90 days Active Flonase Allergy Relief 50 MCG/ACT 1 spray(s) intranasally once a day; Duration: 30 day(s) Active Claritin 10 MG 1 tab(s) orally once a day Active Montelukast Sodium 10 MG Take 1 tablet b y mouth once daily; Duration: 90 Active Lisinopril 40 MG 1 tab(s) orally once a day Active Vital Signs Weight 259 lbs 09/16/2024 Blood pressure systolic 118 mm Hg 09/16/20 24 Blood pressure diastolic 78 mm Hg 024 Heart Rate 82 /min 09/16/2024 Height 66 in 09/16/2024 BMI 41.80 kg/m2 09/16/2024 Encounters Encounter Location Date Provider Diagnosis [facility] [address] [place] [phone] 09/16/2024 Jane Kendall Essential hypertensi on I10 ; Non-seasonal allergic rhinitis, unspecified trigger J30.89 ; Vitamin D deficiency E55.9 and Mixed hyperlipidemia E78.2 Assessments Encounter Date Diagnosis (ICD Code) Assessment Notes Treatment Notes Treatment Clinical Notes Section Notes 09/16/2024 Essential hypertension (ICD-10 - I10) 09/16/2024 Non-seasonal allergic rhinitis, unspecified trigger (ICD-10 - J30.89) 09/16/2024 Vitamin D deficiency (ICD-10 - E55.9) 09/16/2024 Mixed hyperlipidemia (ICD-10 - E78.2) Plan Of Treatment Medication Medication Name Sig Start Date Stop Date Notes Montelukast Sodium 10 MG 1 tab(s) orally once a day; Duration: 90 days Lisinopril 40 MG 1 tab(s) orally once a day Next Appt Details Follow Up: via phone to repo rt test results, Reason: Progress Notes * JACK ELIASDOB: 0 (35 yo F)Acc No.[id number]:09/16/2024 Progress Notes Patient: JACK DICK Provider: MARICHUY Acosta :1990 A ge:34 Y S ex:Female Date:09/16/2024 Address:[facility] [place], [id number] Pcp:R Ed Kenn Subjective: * Chief Complaints: * 1 . Refills. * HPI: H PI: 34 year old female presents with c/o Patient is here today for?refills. Pt sts that she has no new concerns or complaints at this time. * ROS: D ERMATOLOGY: no R poppy. n o H qi. G ASTROENTEROLOGY: no N ausea. n o V omiting. U ROLOGY: no D ifficulty urinating. n o B lood in urine. * Medical History: H ypertension, Seasonal allergies. * Surgical History: W isdom Teeth Extracted 2006, Ear Tube in Right Ear 02/2024. * Family History: F ather: diagnosed with Hypertension. * Social History: C URRENT TOBACCO USE: No . C affeine: yes, frequency: on occasion. Home smoke detector use: yes. Alcohol: no. * Medications: T aking Flonase Allergy Relief 50 MCG/ACT Suspension 1 spray(s) intranasally once a day , Taking Claritin 10 MG Tablet 1 tab(s) orally once a day , Taking Lisinopril 40 MG Tablet 1 tab(s) orally once a day , Taking Montelukast Sodium 10 MG Tablet Take 1 tablet by mouth once daily , Medication List reviewed and reconciled with the patient * Allergies: N .K.D.A. Objective: * Vitals: W t:259, Temp:98.5, BP:118/78, HR:82, Nurse:LISANDRO, Ht: 66, BMI:41.80. * Examination: G eneral Examination: General Appearance: N AD. H EENT: u nremarkable.?Oral cavity: n o lesions, mucosa moist and WNL, no erythema. N shannan: s upple, no lymphadenopathy. C hest: n ormal shape and expansion. H eart: R SR. L ungs: c lear to auscultation. A bdomen: bowel sounds present, soft and nontender, no organomegaly or masses, no guarding or rigidity. N eurologic Exam: I ntact, gait normal. S kin: n ormal, no rash. P eripheral pulses: n ormal (2+) bilaterally. E xtremities: n o leg edema. Assessment: * Assessment: 1. E ssential hypertension - I10 (Primary) 2 . N on-seasonal allergic rhinitis, unspecified trigger - J30.89 3 . V itamin D deficiency - E55.9 ?4. M ixed hyperlipidemia - E78.2 Plan: * Treatment: Value Reference Range T SH 1.24 0.465-4.68 - uIU/mL * Jane Kendall 09/23/2024 8 :55:01 AM > see TE ?LAB: H-CBC (Collection Date & Time - 09/19/2024 09:30 AM)* Value Reference Range W BC 9.1 4.8-10.8 - K/mm3 * R BC 4.70 4.20-5.40 - M/mm3 * H GB 14.1 12.2-16.2 - g/dL * H CT 40.9 37.0-47.0 - % * M CV 87.0 81-99 - fl * M CH 29.9 27.0-31.2 - pg * M CHC 34.4 31.8-35.4 - g/dL * R DW 14.6 11.5-17.5 - % * P LT 354 142-424 - K/mm3 * M PV 7.5 7.4-10.4 - fl * N E% 53.5 37.0-80.0 - % * L Y% 36.0 10-50 - % * M O% 5.7 1.7-9.3 - % * E O% 3.0 0.1-12.0 - % * B A% 1.7 0.1-2.0 - % * N E# 4.9 1.8-7.8 - K/mm3 * L Y# 3.3 0.7-4.5 - K/mm3 * M O# 0.5 0.1-1.0 - K/mm3 * E O# 0.3 0.0-0.4 - K/mm3 * B A# 0.2 0-0.2 - K/mm3 * Jane Kendall 09/23/2024 8 :55:01 AM > see TE ?LAB: H-CMP (Collection Date & Time - 09/19/2024 09:30 AM)* Value Reference Range N A 141 136-145 - mmol/L * K 4.4 3.5-5.1 - mmoL/L * C L 106 98-107 - mmol/L * C O2 24 22.0-30.0 - mmol/L * G AP 15.4 H 5-15 - mEq/L * B UN 16 7-17 - mg/dl * C REATT 0.70 0.52-1.04 - mg/dl * G FRAA 116 >60 - ML/MIN * E GFR 96 >60 - ml/min * G KAYLEEN 95 74-100 - mg/dl * C A 9.8 8.4-10.2 - mg/dl * B ILIT 0.4 0.2-1.3 - mg/dl * A ST 40 H 14-36 - U/L * A LT 51 12-78 - U/L * T P 8.1 6.3-8.2 - g/dl * A LB 4.5 3.5-5.0 - g/dl * G LOB 3.6 H 1.3-3.2 - g/dL * A GRATIO 1.3 1.1-1.8 - * A LP 98 38-126 - U/L * Jane Kendall 09/23/2024 8 :55:01 AM > see TE 2.?Non-seasonal allergic rhinitis, unspecified trigger? Refill Montelukast Sodium Tablet, 10 MG, 1 tab(s), orally, once a day, 90 days, 90 Tablet, Refills 3.??3.?Vitamin D deficiency?LAB: H-VITAMIN D (Collection Date & Time - 09/19/2024 09:30 AM)* Value Reference Range T VITD 52.8 30-100 - ng/mL * Jane Kendall 09/23/2024 8 :55:01 AM > see TE 4.?Mixed hyperlipidemia?LAB: H-Lipid Panel (Collection Date & Time - 09/19/2024 09:30 AM)* Value Reference Range T RIG 161 H 30-150 - mg/dl * C HOL 182 140-200 - mg/dl * D LDL 113.09 100-129 - mg/dL * V LDL 32 0-40 - mg/dL * H DL 44 40-60 - mg/dl * C HLHDL 4.1 H 1-3.5 - * EnochJane Hue 09/23/2024 8 :55:01 AM > see TE * Follow Up: v ia phone to report test results * Images: Billing Information: * Visit Code: 70600 Office Visit, Est Pt., Level 4. * Procedure Codes: * Electronic signature of MARICHUY Machado on 09/20/2025 at 09:45 AM EST Sign off status: Pending * Provider: MARICHUY Acosta Date: 11/16/2023 Generated for Vincenti betty/Socorro/eTransmitting on: 11/20/2024 09:45 AM EST History and Physical Notes * HPI (History of Present Illness) Category Sub-Category Detail Notes Category Not es HPI Patient is here today for refill s. Pt sts that she has no new concerns or complaints at this time Examination Category Sub-Category Detail Notes Category Not es General Examination HEENT: unremarkable Heart: RSR Lungs: clear to auscultatio n Abdomen: bowel sounds present , soft and nontender, no organomegaly or masses, no guarding or rigidity Extremities: no leg edema General Appearance: NAD Skin: normal, no rash Neurologic Exam: Intact, gait normal Neck: supple, no lymphaden opathy Oral cavity: no lesions, mucosa m oist and WNL, no erythema Peripheral pulses: normal (2+) bilatera lly Chest: normal shape and exp ansion
--- OUTSIDE RECORDS SUMMARY | 2025-09-15 08:30 | XMS_ITS ---
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 Name Role Phone Americo Hawk Primary Care Provider Jane Kendall Unavailable [phone] Allergies No Known Allergies REASON FOR VISIT med check Medications Medication SIG (Take, Route, Frequency, Duration) Notes Start Date End Date Status Montelukast Sodium 10 MG Take 1 tablet b y mouth once daily; Duration: 90 Active Flonase Allergy Relief 50 MCG/ACT 1 spray(s) intranasally once a day; Duration: 30 day(s) Active Claritin 10 MG 1 tab(s) orally once a day Active Lisinopril 40 MG 1 tab(s) orally once a day Active Vital Signs Weight 259 lbs 09/15/2025 Blood pressure systolic 132 mm Hg 09/15/20 25 Blood pressure diastolic 80 mm Hg 025 Heart Rate 91 /min 09/15/2025 Height 66 in 09/15/2025 BMI 41.8 kg/m2 09/15/2025 Encounters Encounter Location Date Provider Diagnosis [facility] [address] [facility] [address] [facility] [address] [place] [id number] 09/15/2025 Jane Kendall Essential hypertensi on I10 ; Non-seasonal allergic rhinitis, unspecified trigger J30.89 ; Vitamin D deficiency E55.9 and Mixed hyperlipidemia E78.2 Assessments Encounter Date Diagnosis (ICD Code) Assessment Notes Treatment Notes Treatment Clinical Notes Section Notes 09/15/2025 Essential hypertension (ICD-10 - I10) 09/15/2025 Non-seasonal allergic rhinitis, unspecified trigger (ICD-10 - J30.89) 09/15/2025 Vitamin D deficiency (ICD-10 - E55.9) 09/15/2025 Mixed hyperlipidemia (ICD-10 - E78.2) Plan Of Treatment Medication Medication Name Sig Start Date Stop Date Notes Lisinopril 40 MG 1 tab(s) orally once a day Pending Test Test Name Order Date H-CBC 09/15/2025 H-VITAMIN D 09/15/2025 H-Lipid Panel 09/15/2025 H-CMP 09/15/2025 Next Appt Details Follow Up: via phone to repo rt test results, Reason: Progress Notes * JACK ELIASDOB: 0 (35 yo F)Acc No.[id number]:09/15/2025 Progress Notes Patient: JACK DICK Provider: MARICHUY Acosta :1990 A ge:35 Y S ex:Female Date:09/15/2025 Address:[facility] [address] [place], [id number] Pcp:Americo Hawk Subjective: * Chief Complaints: * 1 . Med check. * HPI: H PI: Patient is here today for m ed checkup and refills. Pt states she needs refills on her meds. Pt states she is doing good with no new concerns. * ROS: D ERMATOLOGY: no R poppy. n o H qi. G ASTROENTEROLOGY: no N ausea. n o V omiting. n o D iarrhea.? U ROLOGY: no D ifficulty urinating. n [...] 1 tablet by mouth once daily , Taking Lisinopril 40 MG Tablet 1 tab(s) orally once a day , Discontinued Montelukast Sodium 10 MG Tablet 1 tab(s) orally once a day , Medication List reviewed and reconciled with the patient * Allergies: N .K.D.A. Objective: * Vitals: W t: 259, Temp: 98.7, BP: 132/80, HR: 91, Nurse: pe, Ht: 66, BMI:41.8. * Examination: G eneral Examination: General Appearance: N AD. H EENT: u nremarkable.?Oral cavity: n o lesions, mucosa moist and WNL, no erythema. N shannan: s upple, no lymphadenopathy. C hest: n ormal shape and expansion. H eart: R SR. L ungs: c lear to auscultation. A bdomen: b owel sounds present, soft and nontender, no organomegaly or masses. N eurologic Exam: I ntact, gait normal. S kin: n ormal, no rash. P eripheral pulses: n ormal (2+) bilaterally. E xtremities: n o leg edema. ? Assessment: * Assessment: 1. E ssential hypertension - I10 (Primary) 2 . N on-seasonal allergic rhinitis, unspecified trigger - J30.89 3 . V itamin D deficiency - E55.9 ?4. M ixed hyperlipidemia - E78.2 Plan: * Treatment: 2. V itamin D deficiency L AB: H-VITAMIN D 3. M ixed hyperlipidemia L AB: H-Lipid Panel * Follow Up: v ia phone to report test results * Images: Billing Information: * Visit Code: 45392 Office Visit, Est Pt., Level 4. * Procedure Codes: * Electronic signature of MARICHUY Machado on 09/20/2025 at 09:45 AM EST Sign off status: Pending * Provider: MARICHUY Acosta Date: 11/15/2024 Generated for Vincenti betty/[place]/eTransmitting on: 11/20/2024 09:45 AM EST History and Physical Notes * HPI (History of Present Illness) Category Sub-Category Detail Notes Category Not es HPI Patient is here today for med ch eckup and refills. Pt states she needs refills on her meds. Pt states she is doing good with no new concerns Examination Category Sub-Category Detail Notes Category Not es General Examination HEENT: unremarkable Heart: RSR Lungs: clear to auscultatio n Abdomen: bowel sounds present , soft and nontender, no organomegaly or masses Extremities: no leg edema General Appearance: NAD Skin: normal, no rash Neurologic Exam: Intact, gait normal Neck: supple, no lymphaden opathy Oral cavity: no lesions, mucosa m oist and WNL, no erythema Peripheral pulses: normal (2+) bilatera lly Chest: normal shape and exp ansion
--- OUTSIDE RECORDS SUMMARY | 2025-09-20 09:45 | XMS_ITS | Patient Health Record ---
[facility] [address] [place] [phone] Care Team Providers Care Flying Squad Salesperson Name Role Phone Americo Hawk Primary Care Provider Enoch Jane Unavailable [phone] Allergies No Known Allergies Reason For Referral No Information Medications Medication SIG (Take, Route, Frequency, Duration) Notes Start Date End Date Status Montelukast Sodium 10 MG Take 1 tablet b y mouth once daily; Duration: 90 Active Flonase Allergy Relief 50 MCG/ACT 1 spray(s) intranasally once a day; Duration: 30 day(s) Active Claritin 10 MG 1 tab(s) orally once a day Active Lisinopril 40 MG 1 tab(s) orally once a day Active Immunizations Vaccine Route Administration Date Status Comme nts COVID 19 Moderna Unknown 06/23/2021 Administered Problems Problem Type SNOMED Code ICD Code Onset Dates Problem Status W/U Status Risk Notes Problem Vitamin D deficiency (12581266) Vitamin D deficiency (E55.9) Active confirmed Problem Essential hypertension (12757876) Essential hypertension (I10) Active confirmed Problem Mixed anxiety and depressive disorder (751258606) Depression with anxiety (F41.8) Active confirmed Problem Mixed hyperlipidemia (384855338) Mixed hyperlipidemia (E78.2) Active confirmed Problem Allergic rhinitis (03355746) Non-seasonal allergic rhinitis, unspecified trigger (J30.89) Active confirmed Problem Obesity (997732005) Mildly obese (E66.9) Active confirmed Vital Signs Heart Rate 91 /min 09/15/2025 Blood pressure diastolic 80 mm Hg 09/15/2025 Height 66 in 09/15/2025 Blood pressure systolic 132 mm Hg 09/15/2025 Weight 259 lbs 09/15/2025 BMI 41.8 kg/m2 09/15/2025 Encounters Encounter Location Date Provider Diagnosis [facility] [address] [place] [phone] 09/15/2025 Jane Kendall Essential hypertensi on I10 ; Non-seasonal allergic rhinitis, unspecified trigger J30.89 ; Vitamin D deficiency E55.9 and Mixed hyperlipidemia E78.2 [facility] [address] [place] [phone] 09/23/2024 Jane Kendall Assessments Encounter Date Diagnosis (ICD Code) Assessment Notes Treatment Notes Treatment Clinical Notes Section Notes 09/15/2025 Essential hypertension (ICD-10 - I10) 09/15/2025 Non-seasonal allergic rhinitis, unspecified trigger (ICD-10 - J30.89) 09/15/2025 Vitamin D deficiency (ICD-10 - E55.9) 09/15/2025 Mixed hyperlipidemia (ICD-10 - E78.2) Plan Of Treatment Pending Test Test Name Order Date H-CBC 09/15/2025 H-VITAMIN D 09/15/2025 H-Lipid Panel 09/15/2025 H-CMP 09/15/2025 Insurance Providers Payer Name Payer Address Payer Phone Subscriber Number Group Number Insured Name Patient Relationship to Insured Coverage Start Date Coverage End Date [employer] [address] [place] [address] [id number] JACK ELIAS Self - patient is the insured Medical (General) History Medical History History ICD Code Hypertension Seasonal allergies Surgical History Surgery Date(Month/Year) Leslie Teeth Extracted 2007 Ear Tube in Right Ear 02/2024
[2025-09-20 10:11] LABS: Hematocrit 40.2 % (37.0-47.0); Hemoglobin 13.6 g/dL (12.2-16.2); Immature Granulocytes % 0.1 %; Mean Corpuscular HGB Conc 33.8 g/dL (31.8-35.4); Mean Corpuscular Hemoglobin 30.0 pg (27.0-31.2); Mean Corpuscular Volume 88.5 fl (81-99); Nucleated Red Blood Cells % 0 %; Platelet Count 328 K/mm3 (142-424); Red Blood Count 4.54 M/mm3 (4.20-5.40); Red Cell Distribution Width-SD 42.8 fL; White Blood Count 7.6 K/mm3 (4.8-10.8)
[2025-09-20 10:28] LABS: Alanine Aminotransferase 82 U/L (12-78); Albumin Level 4.8 g/dl (3.5-5.0); Albumin/Globulin Ratio 1.4 (1.1-1.8); Alkaline Phosphatase 103 U/L (38-126); Anion Gap 13.2 mEq/L (5-15); Aspartate Amino Transferase 61 U/L (14-36); Bilirubin,Total 0.5 mg/dl (0.2-1.3); Blood Urea Nitrogen 12 mg/dl (7-17); Calcium 9.8 mg/dl (8.4-10.2); Carbon Dioxide 25 mmol/L (22.0-30.0); Chloride 102 mmol/L (98-107); Cholesterol 198 mg/dl (140-200); Creatinine,Serum 0.70 mg/dl (0.52-1.04); Estimated Glomerular Filt Rate 95 ml/min (>60); GFR (African American) 115 ML/MIN (>60); Globulin 3.5 g/dL (1.3-3.2); Glucose 97 mg/dl (74-100); HDL Cholesterol 45 mg/dl (40-60); Potassium 4.2 mmoL/L (3.5-5.1); Sodium 136 mmol/L (136-145); Total Protein,Serum 8.3 g/dl (6.3-8.2); Triglycerides 167 mg/dl (30-150)
[2025-09-20 10:46] LABS: 25-OH Vitamin D, Total 53.8 ng/mL (30-100)
== END 2025-09-20 23:59 | disposition home or self-care (01) ==
LOC: LAB 09:43
PROVIDERS: PCP Physician Assistant; Visit Provider Physician Assistant
DX: E55.9 Vitamin D deficiency, unspecified (principal); E78.2 Mixed hyperlipidemia; I10 Essential (primary) hypertension
CPT/HCPCS: 36415; 80053; 80061; 82306; 85025